=== PATIENT | female | born 1985 | race Hispanic/Latino ===

== ENCOUNTER 2021-06-11 22:37 | Emergency (ER) | payer OTHER, SELFPAY ==
--- NOTE | ~2021-06-11 | XR_ITS ---
EXAMINATION: XR chest 1V portable INDICATION: Cough and fever TECHNIQUE: Portable AP chest at 0 to 38 hours COMPARISON: None available FINDINGS: The lungs are free of acute opacities. There is no pleural effusion or pneumothorax. The ca rdiomediastinal silhouette is normal. The visualized bones and soft tissues are unremarkable. IMPRESSION: 1. No acute cardiopulmonary abnormality. Reviewed, dictated and finalized at location A. ITECTURE FACULTY MEMBER
[2021-06-11 22:39] VITALS: BP 112/61; PULSE 96; RESP 18; TEMP 37.2; O2SAT 100
[2021-06-12 02:27] VITALS: BP 120/70; PULSE 93; RESP 18; TEMP 37; O2SAT 100
--- NOTE | 2021-06-12 02:41 | ED.FEVER ---
HPI - Fever General Chief Complaint: Fever Stated Complaint: feeling very sick . being treated for strep Time Seen by Provider: 06/12/21 01:55 Source: patient and RN notes reviewed Mode of arrival: ambulatory Limitations: no limitations History of Present Illness HPI Narrative: This is a 36 year old Female who presents for evaluation of fever. She states she started feeling ill on Tuesday. She states she is runny fever up to 104 F at home for past 4 days. She also reports sore throat, cough, congestion, nausea and weakness. She states she had rapid covid test on Tuesday that was negative. She was evaluated at Urgent Care . She reports negative strep and influenza but she was started on Amoxicillin yesterday. She has come to ER because she still does not feel well even though she is taking antibiotics. She reports nausea and emesis of small amount of phlegm. She denies diarrhea. She has pain all over. She denies travel out of country. She has never been vaccinated for COVID Related Data Home Medications Medication Instructions Recorded Confirmed Bifidobacterium infantis 10.5 mg mg PO 07/11/20 (10 million cell) chewable tablet amoxicillin 875 mg PO Q12H 06/12/21 Allergies Allergy/AdvReac Type Severity Reaction Status Date / Time No Known Allergies Allergy Verified 06/12/21 02:30 Review of Systems Review of Systems: All systems reviewed & are unremarkable except as noted in HPI and below PMFSH Past Medical History Medical History Obesity PCOS (polycystic ovarian syndrome) Surgical History Surgical History Hx of breast augmentation Family History Family History (Updated 07/11/20 @ 16:16 by Melanie Sinha MD) Mother Hypertension Diabetes mellitus Sibling Obesity Social History Social History (Updated 07/11/20 @ 15:54 by Nita Blanca) Social History: Single Smoking status: Never smoker Second hand tobacco smoke exposure: No Alcohol intake: current Drinks per week: 1 Substance use: never Substance use type: does not use Gender identity (if verbalized by the patient): Female Sexual Orientation (if Verbalized by the Patient): Straight or Heterosexual Exam Const: General: no acute distress and alert Orientation/consciousness: patient oriented x3 HENMT: Head: normocephalic and atraumatic Ears: TM's normal bilaterally Face and sinus: normal facial exam, sinuses nontender and face symmetric Mouth: Yes Normal oral and palatal mucosa present, Yes lip normal, Yes oropharynx normal and Yes moist mucous membranes Throat: posterior oropharynx normal, tonsils normal and uvula midline Eyes: EOM: EOMs intact bilaterally Resp: Effort & Inspection: normal respiratory effort and no retractions Auscultation: clear to auscultation bilaterally Cardio: Rate: regular rate Rhythm: regular rhythm Heart sounds: no murmurs GI: GI Palp: Yes Soft to palpation, Yes Tenderness to palpation present (GI) (diffuse), No Guarding due to palpation present (GI) and No Rigid due to palpation Auscultation: normal bowel sounds Skin: General skin exam: normal color Rashes: no rashes Neuro: General: patient oriented x3, moves all extremities and CN's II-XI intact bilaterally Psych: Mental Status: mental status grossly normal Affect: normal affect Course Reevaluation(s) Reevaluation #1: PAtient states she feels better. Her only complaints is sore throat. She will continued the amoxicillin. She is likely dealing with viral syndrome. Date: 06/12/21 Time: 06:41 Vital Signs Vital signs: Vital Signs Temperature 99.0 F 06/11/21 22:39 Pulse Rate 96 06/11/21 22:39 Respiratory Rate 18 06/11/21 22:39 Blood Pressure 112/61 06/11/21 22:39 Pulse Oximetry 100 06/11/21 22:39 Temperature 98.6 F 06/12/21 02:27 Pulse Rate 94 06/12/21 07:15 Respiratory Rat
[2021-06-12] MEDS: ONDANSETRON INJ 4 MG/2 ML VIAL IV PUSH (03:01)
[2021-06-12] MEDS: KETOROLAC 15 MG/ML VIAL (*BKC) IV PUSH (03:02)
[2021-06-12] MEDS: SODIUM CHLORIDE 0.9% IV 1,000 ML 999 ML IV CONT (03:02)
[2021-06-12 03:07] VITALS: BP 104/61; PULSE 96; RESP 12; O2SAT 100
[2021-06-12 03:12] LABS: Alanine Aminotransferase 15 U/L (4-35); Albumin Level 4.8 g/dL (3.5-5.1); Alkaline Phosphatase 59 U/L (38-126); Anion Gap 11 mmol/L (8-16); Aspartate Amino Transferase 35 U/L (14-36); Bilirubin,Total 0.3 mg/dL (0.2-1.3); Blood Urea Nitrogen 9 mg/dL (7-17); Calcium 9.1 mg/dL (8.4-10.2); Carbon Dioxide 26 mmol/L (22-30); Chloride 93 mmol/L (98-107); Estimated Glomerular Filt Rate > 60; Glucose 112 mg/dL (65-110); Lipase 105 U/L (23-300); Potassium 3.8 mmol/L (3.4-5.0); Sodium 130 mmol/L (137-145)
[2021-06-12 03:13] LABS: Lactic Acid Reflex 0.8 mmol/L (0.7-2.1)
[2021-06-12 03:17] LABS: Basophils Percent Auto 0.2 % (0.2-1.2); Hematocrit 37.7 % (37.0-47.0); Hemoglobin 12.9 g/dL (12.0-15.0); Immature Granulocyte Absolute 0.02 K/mm3 (0.00-0.031); Immature Granulocyte Percent A 0.3 % (0-0.5); Lymphocytes Absolute Auto 1.05 K/mm3 (0.9-3.2); Lymphocytes Percent Auto 18.1 % (18.3-44.2); Mean Corpuscular HGB Conc 34.2 g/dl (32-36); Mean Corpuscular Hemoglobin 32.3 pg (26-34); Mean Corpuscular Volume 94.5 fl (80-100); Mean Platelet Volume 10.5 fl (7.4-10.4); Monocytes Absolute Auto 0.4 K/mm3 (0.1-0.6); Monocytes Percent Auto 7.2 % (2.6-8.5); Neutrophils Absolute Auto 4.3 K/mm3 (1.3-6.7); Neutrophils Percent Auto 74.2 % (45.5-73.1); Platelet Count Result 190 k/mm3 (150-375); Red Blood Count 3.99 M/mm3 (4.2-5.4); White Blood Count 5.8 K/mm3 (4.5-10.0)
[2021-06-12 03:34] LABS: Add Urine Microscopic? YES; Appearance Urine Cloudy (Clear); Bacteria Urine Trace /hpf; Bilirubin Urine Negative (Negative); Blood Urine 1+ (Negative); Color Urine Yellow (Yellow); Glucose Urine UA Negative (Negative); Ketones Urine Negative (Negative); Leukocyte Esterase Ur Trace LEU/UL (Negative); Mucus Urine Few /lpf; Nitrate Urine Negative (Negative); Protein Urine Negative (Negative); RBC Urine 21-50 /hpf (0-2); Specific Grav Ur 1.025 (1.001-1.035); Squamous Epithelial Cell Urine Many /hpf (Few); Urobilinogen Urine Negative mg/dL (<2.0)
[2021-06-12 04:37] VITALS: BP 101/61; PULSE 90; RESP 15; O2SAT 98
[2021-06-12 05:30] VITALS: BP 103/69; PULSE 86; RESP 16; O2SAT 98
[2021-06-12 06:19] LABS: Monoscreen Negative (Negative); Negative Monotest Control Negative (Negative); Positive Monotest Control Positive (Positive)
[2021-06-12 07:15] VITALS: BP 103/65; PULSE 94; RESP 15; O2SAT 100
[2021-06-12 19:26] LABS: SARS-CoV-2 RNA PCR Positive
== END 2021-06-12 07:16 | disposition home or self-care (01) ==
PROVIDERS: Emergency Provider General Practice
DX: U07.1 COVID-19 (principal); E28.2 Polycystic ovarian syndrome; E66.9 Obesity, unspecified
CPT/HCPCS: 36415; 71045; 80053; 81001; 81025; 83605; 83690; 85025; 86308; 87081; 87086; 87804; 87880; 96361; 96374; 96375; 99284; C9803; J1885; J2405; J7030; U0003; U0005

== ENCOUNTER 2022-05-03 18:47 | Emergency (ER) | payer SELFPAY ==
--- NOTE | 2022-05-03 18:50 | ED.URI ---
HPI - URI/Sore Throat General Chief Complaint: Upper Respiratory Infection Stated Complaint: cough, chest pain, shortness of breath Time Seen by Provider: 05/03/22 19:00 Source: patient and RN notes reviewed Mode of arrival: ambulatory Limitations: no limitations History of Present Illness HPI Narrative: 37-year-old female presents with concern for 12 day history of cough, nasal congestion, rhinorrhea. Reports symptoms started after she came home from her honeymoon. She reports she went to an urgent care and was tested for COVID and flu, tested negative she is given a Z-Sher. She reports she took the Z-Sher with mild improvement, however her symptoms have worsened and she feels general malaise, fatigue, low-grade fever. MD elicited complaint: cough and sore throat Related Data Allergies Allergy/AdvReac Type Severity Reaction Status Date / Time No Known Allergies Allergy Verified 05/03/22 18:55 Review of Systems Review of Systems: CONSTITUTIONAL: Reports malaise, fatigue, low-grade fever. EYES: Denies visual changes, redness, or discharge. ENT: Reports rhinorrhea, congestion, postnasal drainage. CARDIOVASCULAR: Denies chest pain, palpitations, or edema. RESPIRATORY: Reports persistent cough, chest congestion, occasional shortness of breath GASTROINTESTINAL: Denies abdominal pain, nausea, vomiting, diarrhea SKIN: Denies rash or itching. MUSCULOSKELETAL: Reports myalgia. NEUROLOGIC: Denies headache. All systems reviewed & are unremarkable except as noted in HPI and below PMFSH Comments At time of signature, agree with nursing past medical, surgical, social and family history. There is no relevant family history pertinent to the presenting complaint Exam Narrative: GENERAL: Nontoxic-appearing and in no acute distress. HEAD: Normocephalic EYES: PERRLA, conjunctivae clear ENT: Nares clear, turbinates edematous and erythematous, postnasal drainage. Mucous membranes moist. TM pearly cifuentes with dull light reflex bilaterally; no tragal tenderness. Oropharynx mildly erythematous without lesions. Tonsils not enlarged and without exudate, no drooling, no hoarseness, no trismus, uvula midline. NECK: Supple. No lymphadenopathy CHEST: Scattered expiratory wheeze, otherwise Clear to auscultation, breath sounds equal. No rhonchi, rales, or stridor. No respiratory distress, speaks in full sentences. HEART: Regular rate and rhythm. No murmur heard. SKIN: Warm, dry, no rash. NEURO: Alert and oriented x3. PSYCH: Normal mood and affect Course Course Emergency Course: Patient is aware of diagnosis, understands and agrees to treatment plan. Anticipatory guidance given. Patient agrees to follow-up as directed and is aware of reasons to seek care at the emergency department. Portions of this record may have been created with voice recognition software Level of Care: Express Care Visit Vital Signs Vital signs: Reviewed. MDM - URI/Sore Throat MDM Narrative Medical decision making narrative: Differential diagnosis considered: [place] virus, strep pharyngitis, allergic rhinitis, upper respiratory tract infection, sinusitis, rhinosinusitis, nasopharyngitis. viral pharyngitis, otitis media, otitis externa, pneumonia, bronchitis, viral cough syndrome, viral syndrome, and influenza. Exam findings show no acute concerns or changes; patient is non-toxic appearing and is in no distress. Patient is appropriate for outpatient treatment and follow-up. Lab Data Attestation: I reviewed the patient's lab results. Critical Care Time Critical Care Time Critical Care Time: No Discharge Plan Discharge Clinical Impression: Sinobronchitis Patient Disposition: Home, Self-Care Condition: Stable Instructions: Antibiotic Form, Acute Bronchitis (ED) Additional Instructions: Take medications as prescribed Cough syrup may cause drowsiness; avoid driving or take it at night time. Use inhaler as needed for cough, wheezing, shortness of breath or chest
[2022-05-03 19:00] VITALS: BP 96/69; PULSE 93; RESP 16; TEMP 37.3; O2SAT 100
== END 2022-05-03 19:22 | disposition home or self-care (01) ==
PROVIDERS: Emergency Provider Nurse Practitioner
DX: J40 Bronchitis, not specified as acute or chronic (principal)
CPT/HCPCS: 99213; G0463

== ENCOUNTER 2022-09-20 17:14 | Emergency (ER) | payer OTHER, SELFPAY ==
[2022-09-20 17:27] VITALS: BP 104/57; PULSE 55; RESP 16; TEMP 36.6; O2SAT 100
--- NOTE | 2022-09-20 17:54 | ED.URI ---
HPI - URI/Sore Throat General Chief Complaint: Upper Respiratory Infection Stated Complaint: SORE THROAT Time Seen by Provider: 09/20/22 17:54 Source: patient Mode of arrival: ambulatory Limitations: no limitations History of Present Illness HPI Narrative: 37-year-old female presents with complaint of body aches, fatigue, low-grade fever, sore throat, headache, nasal congestion and cough for 2 days. Reports that several people in her office are sick. Also reports upset stomach, mild nausea. Has not vomited. No diarrhea. No chest pain or shortness of breath. Is not taking any [id number] medications to treat her symptoms. All systems reviewed and negative except as noted above. Related Data Allergies Allergy/AdvReac Type Severity Reaction Status Date / Time No Known Allergies Allergy Verified 09/20/22 17:27 Review of Systems Review of Systems: CONSTITUTIONAL: Reports fatigue, fever, chills, or sweats. EYES: Denies visual changes, redness, or discharge. ENT: Reports rhinorrhea, congestion, sore throat. Denies otalgia. CARDIOVASCULAR: Denies chest pain, palpitations, or edema. RESPIRATORY: Reports cough. Denies dyspnea. GASTROINTESTINAL: Denies abdominal pain, nausea, vomiting, or diarrhea. GENITOURINARY: Denies dysuria or hematuria. SKIN: Denies rash or itching. MUSCULOSKELETAL: Denies back pain, joint pain, or myalgia. NEUROLOGIC: Denies headache, numbness, or weakness. PSYCHIATRIC: Denies anxiety or depression. All other systems reviewed are negative, except as documented in HPI. [facility] Past Medical History Medical History Obesity PCOS (polycystic ovarian syndrome) Surgical History Surgical History Hx of breast augmentation Family History Family History (Updated 07/11/20 @ 16:16 by Melanie Sinha MD) Mother Hypertension Diabetes mellitus Sibling Obesity Social History Social History (Updated 07/11/20 @ 15:54 by Nita Blanca) Social History: Single Smoking status: Never smoker Second hand tobacco smoke exposure: No Alcohol intake: current Drinks per week: 1 Substance use: never Substance use type: does not use Living arrangements: alone Occupation/Education: occupation Gender identity (if verbalized by the patient): Female Sexual Orientation (if Verbalized by the Patient): Straight or Heterosexual Comments At time of signature, agree with nursing past medical, surgical, social and family history. There is no relevant family history pertinent to the presenting complaint. Exam Narrative: GENERAL: This is a well-nourished, well-developed patient, in no apparent distress. HEAD: normocephalic, atraumatic. EYES: PERRL. Sclera clear/white. Vision is grossly intact. EARS: External ears normal, auditory canals clear and without drainage, TMs normal without perforation. Hearing grossly intact. NOSE: External nose normal with no obvious nasal discharge, nares without redness, no rhinorrhea. THROAT: Mucous membranes moist, posterior pharynx clear. NECK: Neck supple, non-tender without lymphadenopathy, masses or thyromegaly. CARDIOVASCULAR: Regular rate and rhythm without murmurs, gallops, or rubs. RESPIRATORY: Clear to auscultation. Breath sounds equal bilaterally. No wheezes, rales, or rhonchi. SKIN: warm, Dry, intact with no suspicious lesions or rash, good texture and turgor. NEURO: awake, alert, and oriented to person, place and time. There were no obvious focal neurologic abnormalities. EXTREMITIES: No joint tenderness, effusion, or edema noted. Course Course Level of Care: Express Care Visit Vital Signs Vital signs: Vital Signs Temperature 36.6 C 09/20/22 17:27 Pulse Rate 55 L 09/20/22 17:27 Respiratory Rate 16 09/20/22 17:27 Blood Pressure 104/57 L 09/20/22 17:27 Pulse Oximetry 100 09/20/22 17:27 Oxygen Delivery Room Air
== END 2022-09-20 18:20 | disposition home or self-care (01) ==
PROVIDERS: Emergency Provider Nurse Practitioner Family
DX: J06.9 Acute upper respiratory infection, unspecified (principal); B97.89 Other viral agents as the cause of diseases classified elsewhere
CPT/HCPCS: 87081; 87880; 99213; G0463

== ENCOUNTER 2023-01-11 21:18 | Emergency (ER) | payer OTHER, SELFPAY ==
--- NOTE | ~2023-01-11 | XR_ITS ---
EXAMINATION: XR chest 2V DATE: 01/11/2023 22:40 INDICATION: Chest pain. TECHNIQUE: Frontal and lateral views of the chest were obtained. COMPARISON: Chest single view 06/12/2021 FINDINGS: The chest demonstrates clear lungs without pneumonia, pleural effusion, or pneumothorax. Th e heart size is normal. Breast implants are noted. IMPRESSION: 1. No acute cardiopulmonary disease. Reviewed, dictated and finalized at location E.
[2023-01-11 21:32] VITALS: BP 111/55; PULSE 77; RESP 16; TEMP 37.1; O2SAT 100
--- NOTE | 2023-01-11 21:36 | ECG_ITS ---
Measurements Intervals [place] Rate: 83 P: 55 [place]: 169 QRS: 64 QRSD: 94 T: 67 QT: 365 QTc: 429 Interpretive Statements SINUS RHYTHM NORMAL ECG NO PREVIOUS ECG AVAILABLE FOR COMPARISON Electronically Signed On 01-12-2023 7:02:23 CDT by Thomas Christina D.O.
[2023-01-11 21:55] LABS: Basophils Percent Auto 0.2 % (0.2-1.2); Eosinophils Absolute Auto 0.1 K/mm3 (0-0.3); Eosinophils Percent Auto 0.9 % (0-4.4); Hematocrit 35.4 % (37.0-47.0); Hemoglobin 11.5 g/dL (12.0-15.0); Immature Granulocyte Absolute 0.03 K/mm3 (0.00-0.031); Immature Granulocyte Percent A 0.3 % (0-0.5); Lymphocytes Absolute Auto 4.28 K/mm3 (0.9-3.2); Mean Corpuscular HGB Conc 32.5 g/dl (32-36); Mean Corpuscular Hemoglobin 31.9 pg (26-34); Mean Corpuscular Volume 98.3 fl (80-100); Mean Platelet Volume 10.4 fl (7.4-10.4); Monocytes Absolute Auto 0.6 K/mm3 (0.1-0.6); Neutrophils Absolute Auto 4.5 K/mm3 (1.3-6.7); Neutrophils Percent Auto 47.6 % (45.5-73.1); Platelet Count Result 253 k/mm3 (150-375); Red Cell Distribution Width 13.2 % (11.5-14.5); White Blood Count 9.5 K/mm3 (4.5-10.0)
[2023-01-11 22:06] LABS: Alanine Aminotransferase 14 U/L (6-35); Albumin Level 4.1 g/dL (3.5-5.1); Alkaline Phosphatase 48 U/L (38-126); Anion Gap 3 mmol/L (8-16); Aspartate Amino Transferase 27 U/L (14-36); Bilirubin,Total 0.3 mg/dL (0.2-1.3); Blood Urea Nitrogen 13 mg/dL (7-17); Calcium 8.8 mg/dL (8.4-10.2); Carbon Dioxide 31 mmol/L (22-30); Chloride 101 mmol/L (98-107); Estimated CRCL calculation 81 ml/min; Estimated Glomerular Filt Rate > 60; Glucose 91 mg/dL (65-110); Lipase 97 U/L (23-300); Potassium 3.5 mmol/L (3.4-5.0); Sodium 135 mmol/L (137-145)
[2023-01-11 22:17] LABS: INR 0.9; Partial Thromboplastin Time 24.2 SECONDS (22.3-36.8); Prothrombin Time 12.7 Seconds (11.1-14.7); Troponin I < 0.012 ng/mL (0.000-0.034)
[2023-01-12 00:27] VITALS: BP 117/56; PULSE 77; RESP 14; TEMP 36.6; O2SAT 100
[2023-01-12 01:32] LABS: Appearance Urine Clear (Clear); Bacteria Urine Rare /hpf; Bilirubin Urine Negative (Negative); Blood Urine Negative (Negative); Color Urine Yellow (Yellow); Glucose Urine UA Negative (Negative); Ketones Urine Negative (Negative); Leukocyte Esterase Ur 1+ LEU/UL (Negative); Nitrate Urine Negative (Negative); Non Pathogenic Casts 0-2; Protein Urine Negative (Negative); Specific Grav Ur 1.021 (1.001-1.035); Squamous Epithelial Cell Urine Few /hpf (Few)
[2023-01-12 01:49] LABS: Amphetamine Screen Urine Negative (Negative); Barbiturate Screen Urine Negative (Negative); Benzodiazepines Screen Urine Negative (Negative); Cannabinoid Screen Urine Negative (Negative); Cocaine Screen Urine Negative (Negative); Methadone Screen Urine Negative (Negative); Opiate Screen Urine Negative (Negative); Phencyclidine Screen Urine Negative (Negative)
[2023-01-12 01:57] LABS: Troponin I < 0.012 ng/mL (0.000-0.034)
[2023-01-12 02:37] LABS: Add Urine Microscopic? YES
--- NOTE | 2023-01-12 02:39 | ED.GENADULT ---
HPI - General Adult General Chief complaint: Fever Stated complaint: fever Time Seen by Provider: 01/11/23 23:53 History of Present Illness HPI narrative: This is a 38-year-old female presenting to the ED with a chief complaint of flushing x2 months. She also says that is associated with chest pressure, throat pressure, and shortness of breath. She says it starts when she wakes up in the morning and continues throughout most of the day. Patient was seen a week ago in urgent care she was treated with steroids which she said helped mildly improved her symptoms. patient denies nausea vomiting or diarrhea. no hives. She has not seen her primary care physician for this. patient is physically very active and takes a multitude of vitamins and supplements. She denies using any sort of fat burner or weight loss supplements. She denies use of illicit drugs. Related Data Allergies Allergy/AdvReac Type Severity Reaction Status Date / Time No Known Allergies Allergy Verified 01/11/23 21:18 PMFSH Past Medical History Medical History Obesity PCOS (polycystic ovarian syndrome) Surgical History Surgical History Hx of breast augmentation Family History Family History Mother Hypertension Diabetes mellitus Sibling Obesity Social History Social History Social History: Single Smoking status: Never smoker Second hand tobacco smoke exposure: No Alcohol intake: current Drinks per week: 1 Substance use: never Substance use type: does not use Living arrangements: alone Occupation/Education: occupation Gender identity (if verbalized by the patient): Female Sexual Orientation (if Verbalized by the Patient): Straight or Heterosexual Exam Narrative: APPEARANCE: patient is resting comfortably. She is animated during the exam. Head: a no edematraumatic. EYES: EOMI, NOSE: Atraumatic NECK: Trachea midline RESPIRATORY: No increased rate of breathing CTAB CARDIOVASCULAR: RRR, no peripheral edema ABDOMINAL: Non-distended MUSCULOSKELETAl: No obvious deformities NEURO: Alert. Moving 4/4 extremities SKIN:: no hives, no edema PSYCHIATRIC: Normal affect Course Vital Signs Vital signs: Vital Signs Temperature 98.8 F 01/11/23 21:32 Pulse Rate 77 01/11/23 21:32 Respiratory Rate 16 01/11/23 21:32 Blood Pressure 111/55 L 01/11/23 21:32 Pulse Oximetry 100 01/11/23 21:32 Oxygen Delivery Room Air 01/11/23 21:32 Temperature 97.8 F 01/12/23 00:27 Pulse Rate 77 01/12/23 00:27 Respiratory Rate 14 01/12/23 00:27 Blood Pressure 117/56 L 01/12/23 00:27 Pulse Oximetry 100 01/12/23 00:27 Oxygen Delivery Room Air 01/11/23 21:32 Medical Decision Making MDM Narrative Medical decision making narrative: -Presentation: 30-year-old female presenting with 2 months of flushing. She is also reporting chest tightness shortness of breath and throat swelling although she seems to be resting comfortably with normal vital signs. She is speaking in full sentences and swallowing her own secretions. Screening lab work was ordered per nursing protocol. I have added on a TSH and a urine drug screen. -DDX includes but is not limited to: Allergic reaction, hyperthyroid, weight loss supplementation/vitamin side effects -Co-morbidities complicating care: history of morbid obesity, history of asthma -Social determinants of health: patient lives with her -External Chart Review: none -Hx from independent Sources: at bedside -Independent interpretation of studies: CBC normal. Metabolic panel normal. Urine is a contaminated catch but she has no urinary symptoms. Will await culture results. Urine drug screen negative. Chest x-ray normal.
== END 2023-01-12 02:56 | disposition home or self-care (01) ==
PROVIDERS: Emergency Provider Emergency Medicine; PCP Internal Medicine
DX: R23.2 Flushing (principal)
CPT/HCPCS: 36415; 71046; 80053; 80307; 81001; 81025; 83690; 84443; 84484; 85025; 85610; 85730; 87086; 87088; 93005; 99284

== ENCOUNTER 2023-06-11 19:50 | Emergency (ER) | payer OTHER, SELFPAY ==
[2023-06-11] VITALS (13 sets, daily range): BP systolic 120–128; BP diastolic 70–85; PULSE 78–99; RESP 13–24; TEMP 37.2; O2SAT 99–100
--- NOTE | ~2023-06-11 | CT_ITS ---
EXAMINATION: CT brain wo con INDICATION: Altered mental status COMPARISON: None TECHNIQUE: Standard unenhanced head CT. The dose-length product (DLP) was 681.00 mGy-cm. The mA was a djusted according to patient size. Iterative reconstruction technique was employed. FINDINGS: No intracranial hemorrhage, acute infarction, or abnormal mass lesion. The ventricles are n ormal. No abnormal mass effect or midline shift. The cifuentes-white matter differentiation is normal. The basal cisterns are patent. The orbits are normal. The paranasal sinuses, mastoids and calvarium are normal. IMPRESSION: 1. No acute intracranial abnormality. Reviewed, dictated and finalized at location F. IATRIC THORACIC PHYSICIAN
--- NOTE | ~2023-06-11 | XR_ITS ---
EXAMINATION: XR chest 2V Exam Date/Time: 06/11/2023 20:29 PRODUCT DEVELOPMENT TECHNICIAN HISTORY: chest pain, HEADACHE Comparison: 01/11/2023. RESULT: Lines, tubes, and devices: Bilateral breast implants. Lungs and pleura: Clear. Cardiomediastinal silhouette: Stable. Other: No acute osseous or upper abdominal finding. IMPRESSION: No acute cardiopulmonary process. Reviewed, dictated and finalized at location K. UCT DEVELOPMENT TECHNICIAN
--- NOTE | 2023-06-11 20:04 | ECG_ITS ---
Measurements Intervals [place] Rate: 107 P: 47 [place]: 190 QRS: 57 QRSD: 86 T: 67 QT: 278 QTc: 372 Interpretive Statements SINUS TACHYCARDIA NONSPECIFIC ST & T-WAVE ABNORMALITY Electronically Signed On 06-12-2023 10:27:23 COMMUNITY RELATIONS REPRESENTATIVE by Srini Long M.D.
[2023-06-11 22:04] LABS: Basophils Percent Auto 0.4 % (0.2-1.2); Eosinophils Absolute Auto 0.1 K/mm3 (0-0.3); Eosinophils Percent Auto 0.8 % (0-4.4); Hematocrit 37.1 % (37.0-47.0); Hemoglobin 12.5 g/dL (12.0-15.0); Immature Granulocyte Absolute 0.02 K/mm3 (0.00-0.031); Immature Granulocyte Percent A 0.3 % (0-0.5); Lymphocytes Absolute Auto 2.23 K/mm3 (0.9-3.2); Lymphocytes Percent Auto 30.2 % (18.3-44.2); Mean Corpuscular HGB Conc 33.7 g/dl (32-36); Mean Corpuscular Hemoglobin 32.7 pg (26-34); Mean Corpuscular Volume 97.1 fl (80-100); Mean Platelet Volume 10.5 fl (7.4-10.4); Monocytes Absolute Auto 0.5 K/mm3 (0.1-0.6); Monocytes Percent Auto 6.9 % (2.6-8.5); Neutrophils Absolute Auto 4.5 K/mm3 (1.3-6.7); Neutrophils Percent Auto 61.4 % (45.5-73.1); Platelet Count Result 231 k/mm3 (150-375); Red Blood Count 3.82 M/mm3 (4.2-5.4); Red Cell Distribution Width 12.6 % (11.5-14.5); White Blood Count 7.4 K/mm3 (4.5-10.0)
[2023-06-11 22:15] LABS: Alanine Aminotransferase 9 U/L (6-35); Albumin Level 4.6 g/dL (3.5-5.1); Alkaline Phosphatase 64 U/L (38-126); Anion Gap 6 mmol/L (8-16); Aspartate Amino Transferase 36 U/L (14-36); Bilirubin,Total 0.4 mg/dL (0.2-1.3); Blood Urea Nitrogen 12 mg/dL (7-17); Calcium 9.2 mg/dL (8.4-10.2); Carbon Dioxide 25 mmol/L (22-30); Chloride 105 mmol/L (98-107); Estimated CRCL calculation 119 ml/min; Estimated Glomerular Filt Rate > 60; Glucose 99 mg/dL (65-110); Lipase 96 U/L (23-300); Potassium 3.8 mmol/L (3.4-5.0); Sodium 136 mmol/L (137-145)
[2023-06-11 22:17] LABS: Prothrombin Time 13.5 Seconds (11.1-14.7)
[2023-06-11 22:18] LABS: Partial Thromboplastin Time 26.8 SECONDS (22.3-36.8)
[2023-06-11 22:26] LABS: Troponin I < 0.012 ng/mL (0.000-0.034)
[2023-06-12] VITALS (10 sets, daily range): BP systolic 114–140; BP diastolic 71–76; PULSE 68–97; RESP 12–22; O2SAT 98–100
[2023-06-12] MEDS: ACETAMINOPHEN 500 MG TABLET 1000 MG PO (00:41)
[2023-06-12] MEDS: diphenhydrAMINE HCl INJ 50 MG/ML VIAL 25 MG IV PUSH (00:41)
[2023-06-12] MEDS: PROCHLORPERAZINE EDISYLATE 10 MG/2 ML VIAL IV PUSH (00:41)
--- NOTE | 2023-06-12 01:12 | ED.GENADULT ---
HPI - General Adult General Chief complaint: Arrhythmia/Palpitations Stated complaint: heart racing, tingling all over, VELA/CP Time Seen by Provider: 06/11/23 22:50 History of Present Illness HPI narrative: This is a 38-year-old female presenting to the ED with chief complaint of paralysis. Patient says that while she was driving her car to a formal [place] she started to develop shortness of breath tingling in her hands feet and mouth and complete paralysis. She felt like she was going to . She called an ambulance was brought to the hospital. At this time she is symptom free. Patient has been being worked up by her primary care physician for a multitude of complaints including headaches, GI discomfort, twitching of her mouth. Patient sees therapist. Patient adamantly denies any history of anxiety or panic disorder. Patient is also complaining of a left-sided stabbing headache which she has had for 4 months. This is her typical headache, she has an outpatient MRI scheduled to her primary care visit physician although she is very upset that is not until August 01. Patient wants a CT of her head. Related Data Allergies Allergy/AdvReac Type Severity Reaction Status Date / Time No Known Allergies Allergy Verified 01/11/23 21:18 [facility] Past Medical History Medical History Obesity PCOS (polycystic ovarian syndrome) Surgical History Surgical History Hx of breast augmentation Family History Family History Mother Hypertension Diabetes mellitus Sibling Obesity Social History Social History Social History: Single Smoking status: Never smoker Second hand tobacco smoke exposure: No Alcohol intake: current Drinks per week: 1 Substance use: never Substance use type: does not use Living arrangements: alone Occupation/Education: occupation Gender identity (if verbalized by the patient): Female Sexual Orientation (if Verbalized by the Patient): Straight or Heterosexual Exam Narrative: APPEARANCE: Patient is intermittently crying during the interview, patient demonstrates Behavioral splitting. Head: atraumatic. EYES: EOMI, NOSE: Atraumatic NECK: Trachea midline RESPIRATORY: No increased rate of breathing, clear to auscultation CARDIOVASCULAR: RRR, no peripheral edema ABDOMINAL: Non-distended soft nontender MUSCULOSKELETAl: No obvious deformities NEURO: Alert. Cranial nerves 2-12 grossly intact. Sensation light touch, motor function cerebellar function intact for 4 extremities. Gait exam was normal. SKIN:: Warm, dry. Normal color PSYCHIATRIC: Normal affect Course Vital Signs Vital signs: Vital Signs Temperature 99.0 F 06/11/23 19:53 Pulse Rate 99 06/11/23 19:53 Respiratory Rate 18 06/11/23 19:53 Blood Pressure 125/70 06/11/23 19:53 Pulse Oximetry 99 06/11/23 19:53 Oxygen Delivery Room Air 06/11/23 19:53 Temperature 99.0 F 06/11/23 19:53 Pulse Rate 78 06/11/23 23:30 Respiratory Rate 15 06/11/23 23:30 Blood Pressure 120/76 06/11/23 22:31 Pulse Oximetry 100 06/11/23 23:00 Oxygen Delivery Room Air 06/11/23 19:53 Medical Decision Making [facility] Narrative Medical decision making narrative: -Course: 38-year-old female presenting with episode of paralysis. This is with consistent with panic disorder. Patient is very distraught when I mentioned anxiety anxiety and panic disorder. Patient is skeptical and confrontational throughout the interview. Laboratory studies, chest x-ray EKG and CT head were all normal. Patient be discharged with primary care follow-up Patient is given a migraine cocktail for her chronic headache. -DDX includes but is not limited to: Somatic symptom disorder, Anxiety, panic disorder, cluster B perso
--- NOTE | 2023-06-12 01:14 | PC.NURSE ---
EDP Dr. Green verbally cancelled 3 hour EKG for pt. This RN used closed loop communication to confirm cancellation of 3hour ekg. However, 3 hour troponin blood test was continued.
[2023-06-12 01:20] LABS: Troponin I < 0.012 ng/mL (0.000-0.034)
== END 2023-06-12 01:37 | disposition home or self-care (01) ==
PROVIDERS: Student in an Organized Health Care Education/Training Program; Emergency Provider Emergency Medicine; PCP Family Medicine
DX: R51.9 Headache, unspecified (principal); F41.0 Panic disorder [episodic paroxysmal anxiety]
CPT/HCPCS: 36415; 70450; 71046; 80053; 83690; 84484; 85025; 85610; 85730; 93005; 96374; 96375; 99284; A9270; J0780; J1200

== ENCOUNTER 2023-12-14 20:04 | Emergency (ER) | payer OTHER, SELFPAY ==
[2023-12-14] VITALS (24 sets, daily range): BP systolic 102–120; BP diastolic 54–81; PULSE 79–101; RESP 12–20; TEMP 36.5; O2SAT 95–100
--- NOTE | ~2023-12-14 | CT_ITS ---
CTA brain carotid Ordering provider: Alayna Sarmiento MD History: . Stroke . Comparison: None. Technique: CT angiogram head and neck was performed following timed intravenous injection of contrast . Thin slice axial images and reformatted coronal images were obtained. Three dimensional reformatted images of the brain were also obtained using a [employer] workstation. Radiation reduction technique ut ilized. FINDINGS: HEAD: --ANTERIOR AND MIDDLE CEREBRAL ARTERIES AND BRANCHES: Normal caliber and contour. --INTERNAL CAROTID ARTERIES: no significant stenosis. No occlusion. --BASILAR ARTERY AND BRANCHES: Normal caliber and contour. No atheromatous disease. --POSTERIOR CEREBRAL ARTERIES: Normal caliber and contour --POSTERIOR COMMUNICATING ARTERIES: Not visualized which is probably related to congenital absence or small size. --ANEURYSM: None visualized. --BRAIN: Please refer to report of CT head performed the same day. --BONES AND SUPERFICIAL SOFT TISSUES: Please refer to report of CT head performed the same day. --PARANASAL SINUSES AND MASTOIDS: Please refer to report of CT head done the same day. NECK: --RIGHT CERVICAL CAROTID SYSTEM: No significant stenosis Percent stenosis per NASCET criteria is 0% No carotid dissection. Otherwise, no significant atheromatous disease or stenosis of the cervical car otid system. --LEFT CERVICAL CAROTID SYSTEM: No significant stenosis Percent stenosis per NASCET criteria is 0% N o carotid dissection. Otherwise, no significant atheromatous disease or stenosis of the cervical jenkins tid system. --VERTEBRAL arteries::Normal caliber and contour.contour. --VISUALIZED AORTIC ARCH AND BRANCHING VMild atheromatous disease but no significant stenosis.tenosis . --SOFT TNormal. Normal. --CERVICALAge appropriate degenerative changes.. 1. IMPRENormal CTA head and neck.Percent stenosis per NASCET criteria is 0%. Reviewed, dictated and finalized at location A.
--- NOTE | ~2023-12-14 | XR_ITS ---
XR chest 1V portable Ordering provider: Hilary Mckenna MD History: 38 years Female with . suspected cva CHEST TIGHTNESS WEAKNES LEFT SIDE OF BODY . Comparison: June 11, 2023 FINDINGS: MEDIASTINUM: The cardiac silhouette is not enlarged. LUNGS: No infiltrates, effusions or pneumothorax. OTHER: No free air under the diaphragm. Degenerative changes of the spine. IMPRESSION: No acute cardiopulmonary pathology. Reviewed, dictated and finalized at location A.
--- NOTE | ~2023-12-14 | CT_ITS ---
CT brain wo con Ordering provider: Alayna Sarmiento MD History: 38 years Female with . Stroke . Comparison: June 12, 2023 Technique: CT of the head without contrast. Radiation reduction technique utilized. FINDINGS: BRAIN PARENCHYMA AND CSF SPACES: No midline shift, mass effect or hemorrhage. The brain parenchyma a nd CSF spaces are otherwise normal. VISUALIZED PARANASAL SINUSES: Well aerated. MASTOIDS: Well aerated. BONES: The bones appear intact. SOFT TISSUES: Visualized nasopharynx is normal. Superficial soft tissues are normal. IMPRESSION: No acute intracranial findings. Reviewed, dictated and finalized at location A.
--- NOTE | 2023-12-14 20:06 | ECG_ITS ---
Test Date: 2023-12-14 20:10:22 Measurements Intervals [place] Rate: 99 P: 51 [place]: 165 QRS: 45 QRSD: 86 T: 56 QT: 346 QTc: 444 Interpretive Statements SINUS RHYTHM NONSPECIFIC T-WAVE ABNORMALITY No previous ECG available for comparison Electronically Signed On 12-15-2023 12:40:24 CDT by Isis Talbert M.D.
[2023-12-14 20:31] LABS: Glucose Point of Care 94 mg/dl (65-105)
[2023-12-14 20:42] LABS: Basophils Percent Auto 0.2 % (0.2-1.2); Eosinophils Absolute Auto 0.2 K/mm3 (0-0.3); Eosinophils Percent Auto 3.8 % (0-4.4); Hematocrit 36.4 % (37.0-47.0); Hemoglobin 12.2 g/dL (12.0-15.0); Immature Granulocyte Absolute 0.01 K/mm3 (0.00-0.031); Immature Granulocyte Percent A 0.2 % (0-0.5); Lymphocytes Absolute Auto 2.76 K/mm3 (0.9-3.2); Lymphocytes Percent Auto 47.1 % (18.3-44.2); Mean Corpuscular HGB Conc 33.5 g/dl (32-36); Mean Corpuscular Hemoglobin 31.4 pg (26-34); Mean Corpuscular Volume 93.8 fl (80-100); Mean Platelet Volume 9.9 fl (7.4-10.4); Monocytes Absolute Auto 0.4 K/mm3 (0.1-0.6); Monocytes Percent Auto 6.5 % (2.6-8.5); Neutrophils Absolute Auto 2.5 K/mm3 (1.3-6.7); Neutrophils Percent Auto 42.2 % (45.5-73.1); Platelet Count Result 265 k/mm3 (150-375); Red Blood Count 3.88 M/mm3 (4.2-5.4); Red Cell Distribution Width 13.5 % (11.5-14.5); White Blood Count 5.9 K/mm3 (4.5-10.0)
[2023-12-14 20:42] LABS: Estimated Glomerular Filt Rate > 60
[2023-12-14 20:53] LABS: Alanine Aminotransferase 9 U/L (6-35); Albumin Level 4.7 g/dL (3.5-5.1); Alkaline Phosphatase 64 U/L (38-126); Anion Gap 9 mmol/L (4-12); Aspartate Amino Transferase 26 U/L (14-36); Bilirubin,Total 0.4 mg/dL (0.2-1.3); Blood Urea Nitrogen 12 mg/dL (7-17); Calcium 9.7 mg/dL (8.4-10.2); Carbon Dioxide 26 mmol/L (22-30); Chloride 102 mmol/L (98-107); Estimated Glomerular Filt Rate > 60; Glucose 96 mg/dL (65-110); INR 0.9; Potassium 3.3 mmol/L (3.4-5.0); Prothrombin Time 12.6 Seconds (11.1-14.7); Sodium 137 mmol/L (137-145)
[2023-12-14 20:54] LABS: Partial Thromboplastin Time 26.2 Seconds (22.3-36.8)
[2023-12-14 21:04] LABS: Troponin I < 0.012 ng/mL (0.000-0.034)
[2023-12-14 21:07] LABS: Magnesium 1.9 mg/dL (1.6-2.3)
[2023-12-14 22:05] LABS: Appearance Urine Cloudy (Clear); Bacteria Urine 1+ /hpf; Bilirubin Urine Negative (Negative); Blood Urine Trace (Negative); Color Urine Yellow (Yellow); Glucose Urine UA Negative (Negative); Ketones Urine Negative (Negative); Leukocyte Esterase Ur Trace LEU/UL (Negative); Need Manual Microscopic Reviewed; Nitrate Urine Negative (Negative); Non Pathogenic Casts 0-2; Protein Urine Negative (Negative); Squamous Epithelial Cell Urine Moderate /hpf (Few); Urobilinogen Urine 0.2 mg/dL (<2.0); pH Urine 5.5 (5.0-9.0)
[2023-12-14 22:12] LABS: Add Urine Microscopic? YES
--- NOTE | 2023-12-14 22:24 | ED.NEUROSD ---
HPI - Neuro Symptoms/Deficit General Chief Complaint: Suspected CVA Stated Complaint: heart racing, feels bad Time Seen by Provider: 12/14/23 20:35 History of Present Illness HPI Narrative: Patient is a 38-year-old female who presents to the emergency department this evening complaining of left-sided numbness and/or tingling. Patient admits that this started shortly prior to arrival. Patient states that she felt as though her heart was racing and then had a sudden onset of left-sided numbness and tingling and weakness. These episodes have now resolved. She admits that she has been having intermittent palpitations and states that back in June she came in for similar symptoms and the doctor at that time told her that she has anxiety and needs to go because there is nothing wrong with her. Patient states that she has never had any anxiety and does not have any history of it and did not feel anxious at that time and does not feel anxious today. Patient states that when she gets these episodes she feels as though her heart is pounding so fast that is about to jump out of her chest. Patient states these episodes are intermittent and although they happened since her last visit to the ED, they have not been as severe as they were on June and today. Patient did not follow up with anyone regarding these episodes. She is currently denying any chest pain or shortness of breath, any focal weakness. No additional symptoms or concerns at this time. Related Data Allergies Allergy/AdvReac Type Severity Reaction Status Date / Time No Known Allergies Allergy Verified 01/11/23 21:18 Review of Systems Review of Systems: All systems are reviewed and are negative unless stated otherwise in the HPI. [facility] Past Medical History Medical History Obesity PCOS (polycystic ovarian syndrome) Surgical History Surgical History Hx of breast augmentation Family History Family History Mother Hypertension Diabetes mellitus Sibling Obesity Social History Social History Social History: Single Smoking status: Never smoker Second hand tobacco smoke exposure: No Alcohol intake: current Drinks per week: 1 Substance use: never Substance use type: does not use Living arrangements: alone Occupation/Education: occupation Gender identity (if verbalized by the patient): Female Sexual Orientation (if Verbalized by the Patient): Straight or Heterosexual Exam Narrative: General: Alert, awake, afebrile, in no acute distress. HEENT: PERRL, no rhinorrhea, no post nasal drip, oropharynx clear. Cardiovascular: Regular rate and rhythm, no murmurs, rubs or gallops, no peripheral edema. Respiratory: Clear to auscultation bilaterally, no tachypnea, no wheezing, no rhonchi, no rubs, no respiratory distress. Abdomen: Soft, nontender, nondistended, no rebound, no guarding, no peritoneal signs. Musculoskeletal: No joint swelling or deformity, normal muscle tone. Skin: No rashes or petechia, no signs of infection. Psychiatric: Alert and oriented, normal behavior and judgment for situation. Neurological: Alert and oriented to person, place, and time. Follows all commands. No focal deficits, 5/5 motor strength in the bilateral upper and lower extremity, sensation intact in the bilateral lower and upper extremity, cranial nerves 2-12 grossly intact, speech is clear and fluent. NIH 0. Course Vital Signs Vital signs: Vital Signs Temperature 97.7 F 12/14/23 20:47 Pulse Rate 99 12/14/23 20:47 Respiratory Rate 14 12/14/23 20:47 Blood Pressure 119/54 L 12/14/23 20:47 Pulse Oximetry 100 12/14/23 20:47 Oxygen Delivery Room Air 12/14/23 20:47 Temperature 97.7 F 12/14/23 20:47 Pulse Rate 81 06
[2023-12-14] MEDS: SODIUM CHLORIDE 0.9% IV 1,000 ML 999 ML IV CONT (22:26)
[2023-12-14] MEDS: POTASSIUM CHLORIDE 20 MEQ PACKET (FOR LIQUID) 40 MEQ PO (22:58)
== END 2023-12-14 23:44 | disposition home or self-care (01) ==
PROVIDERS: Student in an Organized Health Care Education/Training Program; Emergency Provider Emergency Medicine; PCP Family Medicine
DX: R00.2 Palpitations (principal); E66.9 Obesity, unspecified; Z68.25 Body mass index [BMI] 25.0-25.9, adult; E28.2 Polycystic ovarian syndrome; R82.998 Other abnormal findings in urine
CPT/HCPCS: 36415; 70450; 70496; 70498; 71045; 80053; 81001; 81025; 82948; 83735; 84484; 85025; 85610; 85730; 87086; 93005; 96360; 99284; A9270; J7030; Q9967

== ENCOUNTER 2024-01-30 19:11 | Emergency (ER) | payer OTHER, SELFPAY ==
--- NOTE | ~2024-01-30 | XR_ITS ---
EXAMINATION: XR chest 2V DATE: 01/30/2024 19:29 INDICATION: Shortness of breath and chest pressure TECHNIQUE: PA and lateral views of the chest were obtained. COMPARISON: Chest radiograph dated 12/14/2023 FINDINGS: The lungs remain clear with no focal airspace opacities, pulmonary edema, pleural effusion or pneumot horax. The cardiomediastinal silhouette is normal. Bilateral breast implants. Visualized bones and so ft tissues are unremarkable. IMPRESSION: 1. No acute cardiopulmonary disease. Reviewed, dictated and finalized at location A.
[2024-01-30 19:12] VITALS: BP 131/67; PULSE 110; RESP 15; TEMP 37.2; O2SAT 100
--- NOTE | 2024-01-30 19:12 | ECG_ITS ---
Test Date: 2024-01-30 19:15:21 Measurements Intervals [place] Rate: 125 P: 53 ND: 146 QRS: 55 QRSD: 90 T: 53 QT: 324 QTc: 469 Interpretive Statements SINUS TACHYCARDIA MINIMAL Q WAVES- INF/LAT LEADS NONSPECIFIC ST-T WAVE ABNORMALITY- HIGH LATERAL LEADS BASELINE WANDER- V4 ABNORMAL ECG Compared to ECG 12/14/2023 20:10:22 HEART RATE HAS INCREASED Electronically Signed On 01-30-2024 19:38:49 CDT by Thomas Christina D.O.
[2024-01-30 19:27] LABS: Basophils Percent Auto 0.2 % (0.2-1.2); Eosinophils Absolute Auto 0.2 K/mm3 (0-0.3); Eosinophils Percent Auto 1.8 % (0-4.4); Hemoglobin 13.1 g/dL (12.0-15.0); Immature Granulocyte Absolute 0.02 K/mm3 (0.00-0.031); Immature Granulocyte Percent A 0.2 % (0-0.5); Lymphocytes Absolute Auto 3.79 K/mm3 (0.9-3.2); Lymphocytes Percent Auto 44.6 % (18.3-44.2); Mean Corpuscular HGB Conc 33.6 g/dl (32-36); Mean Corpuscular Hemoglobin 31.6 pg (26-34); Mean Corpuscular Volume 94.2 fl (80-100); Mean Platelet Volume 10.5 fl (7.4-10.4); Monocytes Absolute Auto 0.6 K/mm3 (0.1-0.6); Monocytes Percent Auto 7.1 % (2.6-8.5); Neutrophils Absolute Auto 3.9 K/mm3 (1.3-6.7); Neutrophils Percent Auto 46.1 % (45.5-73.1); Platelet Count Result 301 k/mm3 (150-375); Red Blood Count 4.14 M/mm3 (4.2-5.4); Red Cell Distribution Width 14.9 % (11.5-14.5); White Blood Count 8.5 K/mm3 (4.5-10.0)
[2024-01-30 19:40] LABS: Prothrombin Time 13.1 Seconds (11.1-14.7)
[2024-01-30 19:41] LABS: Alanine Aminotransferase 10 U/L (6-35); Albumin Level 4.7 g/dL (3.5-5.1); Alkaline Phosphatase 76 U/L (38-126); Anion Gap 17 mmol/L (4-12); Aspartate Amino Transferase 25 U/L (14-36); Bilirubin,Total 0.5 mg/dL (0.2-1.3); Blood Urea Nitrogen 8 mg/dL (7-17); Calcium 9.5 mg/dL (8.4-10.2); Carbon Dioxide 19 mmol/L (22-30); Chloride 99 mmol/L (98-107); Estimated CRCL calculation 118 ml/min; Estimated Glomerular Filt Rate > 60; Glucose 118 mg/dL (65-110); Lipase 107 U/L (23-300); Potassium 3.4 mmol/L (3.4-5.0); Sodium 135 mmol/L (137-145)
[2024-01-30 19:42] LABS: Partial Thromboplastin Time 23.9 Seconds (22.3-36.8)
[2024-01-30 19:52] LABS: Troponin I < 0.012 ng/mL (0.000-0.034)
[2024-01-30 20:15] VITALS: BP 123/72; PULSE 95; PULSE 99; RESP 16; O2SAT 100
[2024-01-30 21:10] LABS: D Dimer 0.46 ug/mL (<0.48)
[2024-01-30] MEDS: SODIUM CHLORIDE 0.9% IV 1,000 ML 999 ML IV CONT (21:14)
[2024-01-30 21:28] LABS: BEDSIDEPREGUCG Negative
[2024-01-30 21:36] LABS: Lactic Acid Reflex 0.8 mmol/L (0.7-2.0)
[2024-01-30 21:46] LABS: Appearance Urine Clear (Clear); Bacteria Urine None Seen /hpf; Bilirubin Urine Negative (Negative); Blood Urine Negative (Negative); Color Urine Yellow (Yellow); Glucose Urine UA Negative (Negative); Ketones Urine Negative (Negative); Leukocyte Esterase Ur Trace LEU/UL (Negative); Need Manual Microscopic Reviewed; Nitrate Urine Negative (Negative); Non Pathogenic Casts 0-2; Protein Urine Negative (Negative); RBC Urine 0-2 /hpf (0-2); Specific Grav Ur 1.002 (1.001-1.035); Squamous Epithelial Cell Urine Occasional /hpf (Few); Urobilinogen Urine 0.2 mg/dL (<2.0)
[2024-01-30 21:47] LABS: Add Urine Microscopic? YES
[2024-01-30 22:08] LABS: Thyroid Stimulating Hormone Reflex 0.745 uIU/mL (0.465-4.68)
--- NOTE | 2024-01-30 22:21 | ECG_ITS ---
Test Date: 2024-01-30 22:25:03 Measurements Intervals [place] Rate: 86 P: 57 NH: 181 QRS: 63 QRSD: 88 T: 64 QT: 380 QTc: 456 Interpretive Statements SINUS RHYTHM BASELINE ARTIFACT- II, III, AVR, AVL, AVF NORMAL ECG Compared to ECG 01/30/2024 19:15:21 HEART RATE HAS DECREASED Electronically Signed On 01-31-2024 06:21:01 CDT by Thomas Christina D.O.
[2024-01-30 22:34] VITALS: BP 116/72; PULSE 85; RESP 18; O2SAT 100
[2024-01-30 22:48] LABS: Troponin I < 0.012 ng/mL (0.000-0.034)
--- NOTE | 2024-01-30 22:50 | ED.ARRPALP ---
HPI - Arrhythmia/Palpitations General Chief Complaint: Arrhythmia/Palpitations Stated Complaint: high HR Time Seen by Provider: 01/30/24 20:42 Source: patient Limitations: no limitations History of Present Illness HPI narrative: Patient is a 39-year-old female presents to the emergency department complaining of palpitations. Patient states that she gets this on and off, she was at the gym today and she left and was going to her car she started to experience some lightheadedness palpitations and shakiness which has happened to her multiple times in the past and came in for further evaluation. Patient notes that she recently wore an event monitor and has follow-up with a insurance examiner Tuesday to discuss this. Patient is to these events been going on for the past approximately 1 year and she has been told anxiety but she has no reason to be anxious and they just happened on the blue in her watch patellar that her heart rates going to the really high level such as the 140s for no reason. Patient denies chest pain. Patient does admit to getting short of breath with the episodes. Patient notes that her symptoms have resolved. Patient denies any recent injuries, recent illness, vomiting, diarrhea, urinary discomfort, syncope, use of supplements, medication use. Related Data Allergies Allergy/AdvReac Type Severity Reaction Status Date / Time No Known Allergies Allergy Verified 01/30/24 20:19 Review of Systems Review of Systems: A 10 system review of systems was completed on the patient and is negative except for what is stated in the HPI. Nursing and ancillary documentation was reviewed. PMFSH Past Medical History Medical History Obesity PCOS (polycystic ovarian syndrome) Surgical History Surgical History Hx of breast augmentation Family History Family History Mother Hypertension Diabetes mellitus Sibling Obesity Social History Social History Social History: Single Smoking status: Never smoker Second hand tobacco smoke exposure: No Alcohol intake: current Drinks per week: 1 Substance use: never Substance use type: does not use Living arrangements: alone Occupation/Education: occupation Gender identity (if verbalized by the patient): Female Sexual Orientation (if Verbalized by the Patient): Straight or Heterosexual Comments At time of signature, I have reviewed and agree with nursing past medical, surgical, social and family history unless otherwise noted. Please see the nursing chart for further information. There is no relevant family history pertinent to the presenting complaint. Exam Narrative: CONST: No acute distress. Well nourished. HENMT: Head is normocephalic and atraumatic. Moist mucous membranes. No posterior oropharynx erythema. EYES: No conjunctival icterus, injection, or pallor. PERRL. NECK: No meningeal signs. RESP: Able to speak in full sentences. Normal respiratory effort. CTAB. CARDIO: Tachycardic rate. Regular rhythm. 2+ DP and radial pulses bilaterally. GI: Nondistended. No tenderness to palpation. Soft. : No CVA tenderness to palpation. SKIN: No rashes or lesions noted on exposed skin. NEURO: Oriented x3. Moves all extremities. EXTREM/MSK/BACK: No pedal edema. PSYCH: Normal affect. Course Vital Signs Vital signs: Vital Signs Temperature 99 F 01/30/24 19:12 Pulse Rate 110 H 01/30/24 19:12 Respiratory Rate 15 01/30/24 19:12 Blood Pressure 131/67 01/30/24 19:12 Pulse Oximetry 100 01/30/24 19:12 Oxygen Delivery Room Air 01/30/24 19:12 Temperature 99 F 01/30/24 19:12 Pulse Rate 85 01/30/24 22:34 Respiratory Rate 18 01/30/24 22:34 Blood Pressure 116/72 01/30/24 22:34 Pulse Oximetry 100 07/2
== END 2024-01-30 23:12 | disposition home or self-care (01) ==
PROVIDERS: Emergency Medicine; Emergency Provider Student in an Organized Health Care Education/Training Program; PCP Family Medicine
DX: R00.2 Palpitations (principal); R00.0 Tachycardia, unspecified; E28.2 Polycystic ovarian syndrome; E66.9 Obesity, unspecified; Z68.25 Body mass index [BMI] 25.0-25.9, adult; R94.31 Abnormal electrocardiogram [ECG] [EKG]; R06.02 Shortness of breath
CPT/HCPCS: 36415; 71046; 80053; 81001; 81025; 83605; 83690; 83735; 84443; 84484; 85025; 85380; 85610; 85730; 87086; 87088; 93005; 96360; 99284; J7030

== ENCOUNTER 2024-03-09 08:33 | Outpatient (CLI) | payer OTHER, SELFPAY ==
--- NOTE | 2024-03-09 08:37 | EST_ITS ---
Patient Info Name: Franny Guallpa Age: 39 years : 1985 Gender: Female Ht: 66 in Wt: 148 lbs BSA: 1.78 m2 Exam Date: 03/09/2024 10:11 AM Exam Location: Echo Lab Patient Status: Outpatient Admit Date: 03/09/2024 Staff Ordering Physician: Thomas Christina DO Attending Provider: Thomas Christina DO Exercise Technologist: Amy Nickerson [facility] Exercise Physician: Thomas Christina DO Exam Type: CA stress test treadmill Study Info Indications R06.09 - Other forms of dyspnea R07.9 - Chest pain, unspecified An exercise stress test was performed. Summary 1. 1. Negative Abdirahman exercise stress test for ischemic ST changes by ECG criteria. 2. 2. Good functional capacity, achieving 12 METs of workload. 3. 3. Appropriate HR response to exercise. 4. 4. Appropriate HR recovery at 1 minute post exercise. 5. 5. No imaging with stress testing. 6. 6. Patient informed of the above results. Protocol: Abdirahman Stress ECG Details Stage: REST Duration (min): 2 min : 44 sec Speed (mph): 0.0 Grade (%): 0 HR (bpm): 60 SBP (mmHg): 110 DBP (mmHg): 70 METS: --- Stage: REST Duration (min): 6 min : 17 sec Speed (mph): 0.0 Grade (%): 0 HR (bpm): 86 SBP (mmHg): 110 DBP (mmHg): 70 METS: --- Stage: STAGE 1 Duration (min): 1 min : 0 sec Speed (mph): 1.7 Grade (%): 10 HR (bpm): 101 SBP (mmHg): 110 DBP (mmHg): 70 METS: --- Stage: STAGE 1 Duration (min): 2 min : 0 sec Speed (mph): 1.7 Grade (%): 10 HR (bpm): 107 SBP (mmHg): 110 DBP (mmHg): 70 METS: --- Stage: STAGE 1 Duration (min): 3 min : 0 sec Speed (mph): 1.7 Grade (%): 10 HR (bpm): 98 SBP (mmHg): 126 DBP (mmHg): 65 METS: --- Stage: STAGE 2 Duration (min): 1 min : 0 sec Speed (mph): 2.5 Grade (%): 12 HR (bpm): 107 SBP (mmHg): 126 DBP (mmHg): 65 METS: --- Stage: STAGE 2 Duration (min): 2 min : 0 sec Speed (mph): 2.5 Grade (%): 12 HR (bpm): 105 SBP (mmHg): 131 DBP (mmHg): 73 METS: --- Stage: STAGE 2 Duration (min): 3 min : 0 sec Speed (mph): 2.5 Grade (%): 12 HR (bpm): 106 SBP (mmHg): 131 DBP (mmHg): 73 METS: --- Stage: STAGE 3 Duration (min): 1 min : 0 sec Speed (mph): 3.4 Grade (%): 14 HR (bpm): 118 SBP (mmHg): 129 DBP (mmHg): 75 METS: --- Stage: STAGE 3 Duration (min): 2 min : 0 sec Speed (mph): 3.4 Grade (%): 14 HR (bpm): 120 SBP (mmHg): 129 DBP (mmHg): 75 METS: --- Stage: STAGE 3 Duration (min): 3 min : 0 sec Speed (mph): 3.4 Grade (%): 14 HR (bpm): 125 SBP (mmHg): 129 DBP (mmHg): 75 METS: --- Stage: STAGE 4 Duration (min): 1 min : 0 sec Speed (mph): 4.2 Grade (%): 16 HR (bpm): 146 SBP (mmHg): 115 DBP (mmHg): 68 METS: --- Stage: STAGE 4 Duration (min): 2 min : 0 sec Speed (mph): 4.2 Grade (%): 16 HR (bpm): 150 SBP (mmHg): 128 DBP (mmHg): 70 METS: --- S
--- NOTE | 2024-03-09 09:01 | ECHO_ITS ---
Patient Info Name: Franny Guallpa Age: 39 years : 1985 Gender: Female Ht: 66 in Wt: 148 lbs BSA: 1.78 m2 HR: 66 bpm BP: 103 / 62 mmHg Technical Quality: Good Exam Date: 03/09/2024 9:13 AM Exam Location: Echo Lab Patient Status: Outpatient Admit Date: 03/09/2024 Staff Ordering Physician: Thomas Christina DO Mica Plate Layer: Desiree Perkins RDCS Attending Provider: Thomas Christnia DO Referring Physician: Sanford CARROLL; Exam Type: CA echo doppler color flow Study Info Indications R06.09 - Other forms of dyspnea Complete two-dimensional, color flow and Doppler transthoracic echocardiogram is performed. Strain analysis performed. Summary 1. Complete two-dimensional, color flow and Doppler transthoracic echocardiogram is performed. 2. Left ventricular chamber dimension is normal. 3. Left ventricular systolic function is normal, estimated at 60-65%. 4. The left ventricular diastolic function is normal. 5. E/e' 5 is not elevated. 6. Global longitudinal strain is slightly abnormal at -16.9%. 7. There is trace aortic valve regurgitation. 8. There is trace mitral valve regurgitation. Left Ventricle E/e' 5 is not elevated. Global longitudinal strain is slightly abnormal at -16.9%. Left ventricular chamber dimension is normal. Left ventricular systolic function is normal, estimated at 60-65%. The left ventricular diastolic function is normal. Right Ventricle Right ventricular chamber dimension is normal. Right ventricular systolic function is normal. Left Atria Left atrial chamber dimension is normal. Right Atria Right atrial chamber dimension is normal. Aortic Valve The aortic valve is probable trileaflet. There is no aortic valve stenosis. There is trace aortic valve regurgitation. Pulmonic Valve There is no pulmonic regurgitation. Mitral Valve There is no mitral valve stenosis. There is trace mitral valve regurgitation. Tricuspid Valve There is no tricuspid valve regurgitation. Pericardium/Pleural There is no pericardial effusion. Inferior Vena Cava Normal inferior vena cava with >50% collapse upon inspiration consistent with normal right atrial pressure, 5 mmHg. Aorta The aortic root size at the sinus of Valsalva is normal. Left Ventricular Outflow Tract Name Value Normal LVOT 2D LVOT Diameter 2.0 cm LVOT Doppler LVOT Peak Gradient 4 mmHg LVOT Mean Gradient 2 mmHg LVOT VTI 20 cm LVOT VTI/AV VTI Ratio 0.8 LVOT Stroke Volume 60 ml LVOT CO 4.3 l/min LVOT CI 2.4 l/min/m2 Pulmonic Valve Name Value Normal RVOT Doppler RVOT Peak Gradient 2 mmHg PV Doppler PV Peak Gradient 3 mmHg Mitral Valve
== END 2024-03-09 08:34 | disposition home or self-care (01) ==
LOC: ANHCARD 08:35
PROVIDERS: PCP Family Medicine; Visit Provider Internal Medicine Cardiovascular Disease
DX: R07.9 Chest pain, unspecified (principal)
CPT/HCPCS: 93017; 93306

== ENCOUNTER 2024-11-21 19:38 | Emergency (ER) | payer OTHER, SELFPAY ==
--- NOTE | 2024-11-21 19:40 | ED.URI ---
HPI - URI/Sore Throat General Chief Complaint: Upper Respiratory Infection Stated Complaint: Sore Throat/Body aches/Chest Pain Time Seen by Provider: 11/21/24 19:40 Source: patient Mode of arrival: ambulatory Limitations: no limitations History of Present Illness HPI Narrative: Franny is a 39-year-old female patient presenting to the clinic today with complaints of runny nose, nasal congestion, cough, sore throat, headache body aches, feeling fevers, chills and chest discomfort x1 day. She reports she fell as though she was wheezing earlier in use her albuterol inhaler and this helped. Has a dry nonproductive cough Related Data Home Medications ?Medication ?Instructions ?Recorded ?Confirmed ?Last Taken ?Type amitriptyline 10 mg tablet 10 mg PO QHS 02/01/24 11/21/24 Unknown History Allergies Allergy/AdvReac Type Severity Reaction Status Date / Time No Known Allergies Allergy Verified 11/21/24 19:43 Review of Systems Review of Systems: Pertinent positives per HPI. Patient denies any rash, visual changes, dizziness, shortness of breath, chest pain, palpitations, nausea, vomiting, diarrhea, constipation, abdominal pain, or any urinary issues. [facility] Past Medical History Medical History Obesity PCOS (polycystic ovarian syndrome) Surgical History Surgical History Hx of breast augmentation Family History Family History Mother Hypertension Diabetes mellitus Sibling Obesity Social History Social History Social History: Single Smoking status: Never smoker Second hand tobacco smoke exposure: No Alcohol intake: current Drinks per week: 1 Substance use: never Substance use type: does not use Do You Feel Safe in your Home?: Yes Lack of Transportation: No Lack of Food: Never True Current Housing: I Have Housing Concerned About Future Housing: No Difficulty Paying Gas/Electric Bills: No Difficulty Paying for Meds: No Currently Unemployed: No Education: High School Diploma/GED Difficulty w/ Childcare or Family Care: No Living arrangements: alone Occupation/Education: occupation Gender identity (if verbalized by the patient): Female Sexual Orientation (if Verbalized by the Patient): Straight or Heterosexual Comments At the time of my signature, I reviewed and agree with the nursing past medical, surgical, social, and family history. There is no relevant family history pertinent to the patient complaint. Exam Narrative: General: Well-developed, well nourished, in no apparent distress Head: Normocephalic, atraumatic Eyes: Pupils equally round and reactive to light bilaterally, EOM intact, sclera and conjunctive clear, no discharge, lids normal Ears: TMs intact and congested, ear canals clear, no drainage, grossly hearing normal. Nose: Nares patent, clear nasal discharge, no inflammation, no sinus tenderness. Mouth: Oral pharynx red without lesions or masses, good dentition, MMM. Neck: Supple, trachea midline, no enlargement of anterior or posterior cervical nodes, no thyroid masses or goiter palpable. Cardio: Regular rate and rhythm, s1 and s2 normal, no murmur appreciated. Resp: Clear to auscultation bilaterally, no rhonchi, rales, wheezing or rubs Course Course Emergency Course: Portions of this record may have been created with voice recognition software. Level of Care: Express Care Visit Vital Signs Vital signs: Vital Signs Temperature 37.9 C H 11/21/24 19:50 Pulse Rate 100 11/21/24 19:50 Respiratory Rate 18 11/21/24 19:50 Blood Pressure 115/53 L 11/21/24 19:50 Pulse Oximetry 100 11/21/24 19:50 Oxygen Delivery Room Air 11/21/24 19:50 Temperature 37.9 C H 11/21/24 19:50 Pulse Rate 100 11/21/24 19:50 Respiratory Rate 18 11/21/24 19:50 Blood Pressure 115/53 L 11/21/24 19:50 Pulse Oximetry 100 11/21/24 19:50 Oxygen Delivery Room Air 11/21/24 19:50 Vital signs reviewed MDM - URI/Sore Throat MDM Narrative Medical decision making narrative: At the time of visit patient is resting comfortably on the exam table. Patient appears to be nontoxic. Labs: COVID testing was positive. Influenza and strep test were negative. We will send strep for culture. Plan: Patient has COVID-19. Work note was given. Supportive measures were discussed with the patient and they voiced understanding discharge instructions and agrees to treatment plan. Return precautions reviewed Differential Diagnosis Differential diagnosis: Likely upper respiratory infection, otitis media, sinusitis, viral infection, bronchitis, influenza, pharyngitis and other (COVID) Lab Data Labs: Lab Results 11/21/24 11/21/24 Range/Units 19:53 19:56 POC SARS CoV-2 Ag Positive (Negative) POC Grp A Strep Screen Negative (Negative) Discharge Plan Discharge Clinical Impression: COVID-19 Patient Disposition: Home Condition: Stable Instructions: Antibiotic Form, How to Recover from COVID-19 at Home (ED) Additional Instructions: COVID testing was positive in the clinic today. Influenza and strep test was negative. We will send strep for culture. May take DayQuil/NyQuil for cold/flu symptoms Increase fluids and stay well hydrated Tylenol/motrin for pain/fever Flonase and OTC antihistamines as directed Vicks vapor rub to open sinuses Sinus rinses for congestion Cepacol spray, cough drops, throat lozenges, warm tea with honey/lemon, gargle salt water to soothe throat BRAT diet for diarrhea Clear liquids x 24 hours then advance as tolerated for nausea/vomiting Go to the ED if you develop a worsening in your condition- high fever not controlled by Tylenol or Motrin, dehydration, weakness, lethargy, shortness of breath, or chest pain. Follow up with your PCP in 3-5 days if symptoms persist. Patient Language: Macanese Prescriptions: No Action prednisone 20 mg tablet 40 mg PO DAILY 5 Days Qty: 10 0RF albuterol sulfate 90 mcg/actuation HFA aerosol inhaler 2 puff INHALATION QID PRN (Reason: shortness of breath or wheezing) Qty: 8.5 0RF amitriptyline 10 mg tablet 10 mg PO QHS metoprolol succinate 25 mg tablet extended release 24 hr See Rx Instructions .ROUTE .COMPLEX Qty: 90 2RF Dose Instruction: TAKE 1 TABLET BY MOUTH DAILY Rx Instructions: TAKE 1 TABLET BY MOUTH DAILY Follow-up/Referrals: UNKNOWN,DOCTOR [Non-Staff] - Stand Alone Forms: Work/School Release IP Time of Disposition: 19:56 Quality NIHSS Nursing Documentation ED NIHSS nursing documentation: reviewed/agree
--- OUTSIDE RECORDS SUMMARY | 2024-11-21 19:40 | XMS_ITS | Referral Summary ---
Author Organization [facility] Address [address] [place] [address] Care Team Providers Care Copywriter Name Role Phone Giselle Fuentes MD Unavailable [phone] Christian Man MD Primary Care Provide r Allergies No known active allergies Medications ibuprofen (ADVIL,MOTRIN) 600 mg tablet Take 1 tablet (600 mg total) by mouth every 6 (six) hours as needed for pain (pain) 30 tablet 2 Active Additional Information Patient not taking.Reported on 02/28/2024 metFORMIN (FORTAMET) 500 mg 24 hr tablet Take 1 tablet (500 mg total) by mouth daily with breakfast Active spironolactone (ALDACTONE) 25 mg tablet Take 1 tablet (25 mg total) by mouth daily Active albuterol HFA (PROVENTIL HFA,VENTOLIN HFA,PROAIR HFA) 90 mcg/actuation inhaler 3 Active metFORMIN XR (GLUCOPHAGE XR) 500 mg 24 hr tablet 3 Active SUMAtriptan (IMITREX) 25 mg tabletIndication s:Migraine Take 1 tablet (25 mg total) by mouth once as needed for migraine May repeat dose once in 2 hours if no relief. Do not exceed 2 doses in 24 hours. 9 tablet 4 Active Additional Information Patient not taking.Reported on 02/28/2024 benzonatate (TESSALON) 100 mg capsule 4 Active fluconazole (DIFLUCAN) 150 mg tablet 4 Active methylPREDNISolo ne (MEDROL DOSEPACK) 4 mg Dosepack 4 Active nortriptyline (PAMELOR) 10 mg capsule 4 Active predniSONE (DELTASONE) 20 mg tablet 4 Active Ajovy Autoinjector 225 mg/1.5 mL auto-injector subcutaneous auto-injector Inject 1.5 mL (225 mg total) under the skin every 30 (thirty) days 4 Active metoprolol tartrate (LOPRESSOR) 25 mg immediate release tablet Take 1 tablet (25 mg total) by mouth 2 (two) times a day 180 tablet 3 4 02/28/20 25 Active Active Problems Problem Noted Date Diagnosed Date RLQ abdominal pain 10/10/2023 Urgency of urination 10/08/2022 Resolved Problems Problem Noted Date Diagnosed Date Resolved Date Dyspareunia in female 10/08/20222023 Dysuria 10/08/2022 10/05/2023 Lower urinary tract symptoms 10/08/2022 10/05/2023 Urine finding 10/08/2022 10/12/2022 Bleeding in early 05/12/2022 10/12/2022 Missed ab 09/29/2021 10/12/2022 Ultrasound scan done for deonte bility to hear heart tones 09/28/2021 10/12/2022 Social History Tobacco Use Types Packs/Day Years Used Date Smoking Tobacco: Never Smokeless Tobacco: Never AUDIT-C Answer Date Recorded Q1: How often do you have a drink containing alc ohol? 2-4 times a month 05/24/2023 Q2: How many drinks containi ng alcohol do you have on a typical day when you are drinking? 1 or 2 05/24/2023 Q3: How often do you have si x or more drinks on one occasion? Never 05/24/2023 Personal Safety Answer Date Recorded Have you ever been in or are you currently in a harmful physical or emotional relationship or is someone making you feel afraid or unsafe? 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 Gender Identity Not on file Sexual Orientation Not on file Last Filed Vital Signs Vital Sign Reading Time Taken Comments Blood Pressure 101/65 02/28/2024 1:22 PM CDT Pulse 81 02/28/2024 1:22 PM CDT Temperature 36.7 C (98 F) 02/21/2024 7:14 PM CDT Respiratory Rate 16 02/21/2024 10:45 PM CDT Oxygen Saturation 100% 02/21/2024 10:45 PM CDT Inhaled Oxygen Concentration - - Weight 68.9 kg (152 lb) 02/28/2024 1:22 PM CDT Height 167.6 cm (5' 6 ) 02/28/2024 1:22 PM CDT Body Mass Index 24.53 02/28/2024 1:22 PM CDT Plan of Treatment Not on file Procedures Procedure Name Priority Date/Time Associated Diagnosis Comments PAP AND HIGH RISK HPV, REFLEX TO GENOTYPING Routine 08/21/2021 3:49 PM GEODETIC COMPUTATOR Well woman exam from Last 3 Months or Most Recently Relevant to Health Maintenance Results * Pap and High Risk HPV, reflex to Genotyping (08/21/2021 3:49 PM GEODETIC COMPUTATOR) Thin prep (Pap test) 08/21/2021 3:49 PM GEODETIC COMPUTATOR 08/27/2021 10:00 AM GEODETIC COMPUTATOR Narrative PATHOLOGY [facility] - 08/28/2021 11:04 AM GEODETIC COMPUTATOR EPIC results best viewed via link to PDF [address] [address] Tele: Saritha Zuñiga MD - Inventory Associate CYTOLOGY REPORT Note to Patients: This report may contain a detailed description of human tissue sent by a health care provider to the laboratory for pathologic evaluation. The content of this report is essential for diagnosis and may provide important critical findings. This information may be unfamiliar to patients to review without a medical professional present. It is advised that the patient review this report in the presence of a health care provider who can answer questions and explain the details. Patient Name: FRANNY MAHER Address: [address] [place] [address], [facility] [address] [place] [address] Gender: F : 1985 (Age: 36) Service: Location: [facility] #: [id number] Patient Type: [facility] [place] Taken: 08/21/2021 Reported: 08/28/2021 Physician(s): Giselle Fuentes M.D. FINAL DIAGNOSIS: Specimen Type: - ThinPrep Pap and HPV w/ reflex Genotyping Statement of Specimen Adequacy: Source: Cervical/Endocervical - Satisfactory for interpretation - Endocervical /Transformation Zone component present - Case screened using computer assisted imaging technology General Categorization: - Negative for intraepithelial lesion or malignancy cad/08/28/2021 11:04 Komal Carolina M.S., CT (ASCP) Report Reviewed and Electronically Signed By Komal Carolina M.S., MILLY (ASCP) Clerical Data Follow A; G0145 DIAGNOSIS COMMENT: Ancillary Testing: HPV High Risk Group (16, 18, 31, 33, 35, 39, 45, 51, 52, 56, 58, 59, 66 and 68) - Not Detected Reference Range: Not Detected This test was performed using the MARY 4800 CLINICAL DIAGNOSIS AND HISTORY Last Menstrual Period: 06/28/21 Menstrual History: REPORT IMAGES AND/OR SCANNED DOCUMENTS ONLY VIEWABLE IN PDF FORMAT The Pap test is a screening test used to aid in the detection of cervical cancer and its precursors. It should not be the sole means by which malignant and premalignant lesions are diagnosed. Both false negative and false positive results may occur. It also has poor sensitivity for the detection of endometrial lesions and should not be used to evaluate suspected endometrial abnormalities. For these reasons it is most important to obtain Pap tests at regular intervals, as recommended by your physician or nurse practitioner. us Giselle Fuentes MD LAB CYTOLOGY ORDERABLES Fin al Result PATHOLOGY [facility] Laboratory Receiving [address] [facility] [place] [address] from Last 3 Months or Most Recently Relevant to Health Maintenance Insurance [facility] Address: [address] [place] [id number] Advance Directives For more information, please contact: [phone] * Full Code (Latest Code Status on File) Date Activated Date Inactivated Comments 05/24/2023 10:13 AM 05/24/2023 3:52 PM * Full Code Date Activated Date Inactivated Comments 10/01/2021 11:13 AM 10/01/2021 4:21 PM * Full Code Date Activated Date Inactivated Comments 10/01/2021 11:12 AM 10/01/2021 11:13 AM Care Teams Copywriter Relationship Specialty Start Date End Date Christian Man MD [address] [place] [address] PCP - General Family Medicine 05/17/23 Giselle Fuentes MD [address] [address] Consulting Physician Obstetrics and Gynecology 10/01/21
--- OUTSIDE RECORDS SUMMARY | 2024-11-21 19:40 | XMS_ITS | Clinical Summary ---
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 Gender Identity Not on file Sexual Orientation Not on file Obstetrics History Para Term AB IAB SAB Ectopic Multiple Livin g Live Births 2 2 1 Date Outcome GA Total Labor Labor/2nd/3rd Weight Sex Type Anes PTL Graciela A1 A5 Name Clin 09/2021 Molar D&C 10/2022 SAB Last Filed Vital Signs Vital Sign Reading [...] 02/28/2024 1:22 PM CDT Plan of Treatment Health Maintenance Due Date Last Done Comments Depression Screening 1985 Hepatitis C Screening 1985 DTaP/Tdap/Td Vaccine (1 - Tdap) 01/11/1996 Varicella Vaccines (1 of 2 - 13+ 2-dose series) 1998 Hepatitis B Screening 2003 Cervical Cancer Screening 08/21/2022 08/21/2021 Influenza Vaccine (#1) 2024 Regular Well Visit/Exam 18-64 10/04/2024, 08/21/2021 HPV Vaccines Aged Out No longer eligi ble based on patient's age to complete this topic Pneumococcal vaccine <65 Aged Out No longer eligible based on patient's age to complete this topic Procedures Procedure Name Priority Date/Time Associated Diagnosis Comments PAP AND HIGH RISK HPV, REFLEX TO GENOTYPING Routine 08/21/2021 3:49 PM GRANULATOR MACHINE OPERATOR Well woman exam from Last 3 Months or Most Recently Relevant to Health Maintenance Results * Pap and High Risk HPV, reflex to Genotyping (08/21/2021 3:49 PM GRANULATOR MACHINE OPERATOR) Thin prep (Pap test) 08/21/2021 3:49 PM GRANULATOR MACHINE OPERATOR 08/27/2021 10:00 AM GRANULATOR MACHINE OPERATOR Narrative PATHOLOGY [facility] - 08/28/2021 11:04 AM GRANULATOR MACHINE OPERATOR EPIC results best viewed via link to PDF [address] [address] Tele: Saritha Zuñiga MD - Custodial Officer CYTOLOGY REPORT Note to Patients: This report [...] the details. Patient Name: FRANNY MAHER Address: [address] [place] [address] Gender: F : 1985 (Age: 36) Service: Location: [facility] : [id number] [facility] #: [id number] Patient Type: [facility] SPECIMEN Taken: 08/21/2021 Reported: 08/28/2021 Physician(s): Giselle Fuentes M.D. FINAL DIAGNOSIS: Specimen Type: - ThinPrep Pap and HPV w/ reflex Genotyping Statement of Specimen Adequacy: Source: Cervical/Endocervical - Satisfactory for interpretation - Endocervical /Transformation Zone component present - Case screened using computer assisted imaging technology General Categorization: - Negative for intraepithelial lesion or malignancy cad/08/28/2021 11:04 Komal Carolina M.S., MILLY (ASCP) Report Reviewed and Electronically Signed By [...] LAB CYTOLOGY ORDERABLES Fin al Result PATHOLOGY [facility] Laboratory Receiving [address] [place] [address] from Last 3 Months or Most Recently Relevant to Health Maintenance Insurance Advance Directives For more information, please contact: [phone] * Full Code (Latest Code Status on File) Date Activated Date Inactivated Comments 05/24/2023 10:13 AM 05/24/2023 3:52 PM * Full Code Date Activated Date Inactivated Comments 10/01/2021 11:13 AM 10/01/2021 4:21 PM * Full Code Date Activated Date Inactivated Comments 10/01/2021 11:12 AM 10/01/2021 11:13 AM Care Teams Director Public Relationship Specialty Start Date End Date Christian Man MD [address] [place] [address] PCP - General Family Medicine 05/17/23 Giselle Fuentes MD [address] [facility] [address] [place] [address] Consulting Physician Obstetrics and Gynecology 10/01/21
[2024-11-21 19:50] VITALS: BP 115/53; PULSE 100; RESP 18; TEMP 37.9; O2SAT 100
[2024-11-21 19:55] LABS: EDCOVIDSCREEN Positive (Negative)
[2024-11-21 19:58] LABS: EDSTREPNEGPOS1 Negative (Negative)
[2024-11-21 20:02] LABS: EDINFLUASCREEN Negative (Negative); EDINFLUBSCREEN Negative (Negative)
== END 2024-11-21 20:06 | disposition home or self-care (01) ==
PROVIDERS: Emergency Provider Nurse Practitioner Family
DX: U07.1 COVID-19 (principal); E66.9 Obesity, unspecified; E28.2 Polycystic ovarian syndrome; Z68.25 Body mass index [BMI] 25.0-25.9, adult
CPT/HCPCS: 87081; 87426; 87804; 87880; 99213; G0463

== ENCOUNTER 2025-04-09 17:18 | Emergency (ER) | payer OTHER, SELFPAY ==
[2025-04-09 17:32] VITALS: BP 105/57; PULSE 70; RESP 16; TEMP 36.4; O2SAT 98
[2025-04-09 17:40] LABS: EDSTREPNEGPOS1 Negative (Negative)
--- NOTE | 2025-04-09 17:52 | ED.URI ---
HPI - URI/Sore Throat General Chief Complaint: Upper Respiratory Infection Stated Complaint: SORE THROAT Time Seen by Provider: 04/09/25 17:35 Source: patient and RN notes reviewed Mode of arrival: ambulatory Limitations: no limitations History of Present Illness HPI Narrative: 40-year-old female presents Express Care complaining of sore throat and mild congestion since yesterday. Patient denies any cough, runny nose, fevers, body aches, chills, nausea vomiting, diarrhea, chest pain, difficulty breathing. She reports a burning sensation the back of her throat, it is worse with swallowing. Patient denies any dysphagia or difficulty clearing secretions. Patient Says she recently got back from [place]. Patient would like a refill of her albuterol inhaler as she is out, she has a history of asthma. Related Data Home Medications ?Medication ?Instructions ?Recorded ?Confirmed ?Last Taken ?Type amitriptyline 10 mg tablet 10 mg PO QHS 02/01/24 11/27/24 Unknown History clonazepam 0.5 mg tablet (Klonopin) 0.5 mg PO DAILY 11/27/24 11/27/24 Unknown History Allergies Allergy/AdvReac Type Severity Reaction Status Date / Time No Known Allergies Allergy Verified 11/21/24 19:43 Review of Systems Review of Systems: CONSTITUTIONAL: Denies fever, body aches, chills, or sweats. EYES: Denies visual changes, redness, or discharge. ENT: Denies rhinorrhea, or otalgia. Positive for congestion and sore throat. CARDIOVASCULAR: Denies chest pain, palpitations, or edema. RESPIRATORY: Denies cough or dyspnea. GASTROINTESTINAL: Denies abdominal pain, nausea, vomiting, or diarrhea. GENITOURINARY: Denies dysuria or hematuria. SKIN: Denies rash or itching. MUSCULOSKELETAL: Denies back pain, joint pain, or myalgia. NEUROLOGIC: Denies headache, numbness, or weakness. PSYCHIATRIC: Denies anxiety or depression. All other systems reviewed are negative, except as documented in HPI. REPLACED BY [facility] Past Medical History Medical History Obesity PCOS (polycystic ovarian syndrome) Surgical History Surgical History Hx of breast augmentation Family History Family History Mother Hypertension Diabetes mellitus Sibling Obesity Social History Social History Social History: Single Smoking status: Never smoker Second hand tobacco smoke exposure: No Alcohol intake: current Drinks per week: 1 Substance use: never Substance use type: does not use Do You Feel Safe in your Home?: Yes Lack of Transportation: No Lack of Food: Never True Current Housing: I Have Housing Concerned About Future Housing: No Difficulty Paying Gas/Electric Bills: No Difficulty Paying for Meds: No Currently Unemployed: No Education: High School Diploma/GED Difficulty w/ Childcare or Family Care: No Living arrangements: alone Occupation/Education: occupation Gender identity (if verbalized by the patient): Female Sexual Orientation (if Verbalized by the Patient): Straight or Heterosexual Comments At the time of my signature, I reviewed and agree with the nursing past medical, surgical, social, and family history. There is no relevant family history pertinent to the patient complaint. Exam Narrative: GENERAL: This is a well-nourished, well-developed adult, in no apparent distress. They are non ill-appearing, nontoxic appearing. HEAD: normocephalic, atraumatic. EYES: Sclera clear/white. Conjunctiva normal. Vision is grossly intact. Extraocular movements intact EARS: External ears normal, auditory canals clear and without drainage, TMs normal without perforation. Hearing grossly intact. NOSE: External nose normal with no obvious nasal discharge, nasal turbinates without redness, no rhinorrhea. THROAT: Mucous membranes moist, posterior pharynx erythematous. Uvula midline. NECK: Neck supple, non-tender without lymphadenopathy, masses or thyromegaly. CARDIOVASCULAR: Regular rate and rhythm without murmurs, gallops, or rubs. RESPIRATORY: Clear to auscultation. Breath sounds equal bilaterally. No wheezes, rales, or rhonchi. SKIN: warm, Dry, intact with no suspicious lesions or rash, good texture and turgor. NEURO: awake, alert, and oriented to person, place and time. There were no obvious focal neurologic abnormalities. EXTREMITIES: No joint tenderness, effusion, or edema noted. Course Course Emergency Course: Portions of this record may have been created with voice recognition software Level of Care: [facility] Visit Vital Signs Vital signs: Vital Signs Temperature 97.5 F L 04/09/25 17:32 Pulse Rate 70 04/09/25 17:32 Respiratory Rate 16 04/09/25 17:32 Blood Pressure 105/57 L 04/09/25 17:32 Pulse Oximetry 98 04/09/25 17:32 Temperature 97.5 F L 04/09/25 17:32 Pulse Rate 70 04/09/25 17:32 Respiratory Rate 16 04/09/25 17:32 Blood Pressure 105/57 L 04/09/25 17:32 Pulse Oximetry 98 04/09/25 17:32 Reviewed MDM - URI/Sore Throat MDM Narrative Medical decision making narrative: Rapid strep negative. Throat culture is pending. Symptoms likely viral pharyngitis. Refilled patient's albuterol inhaler. Will send a prescription of dexamethasone up with pain. Discussed physical exam findings. Advised supportive measures and signs/symptoms to go to the ER. Pt is appropriate for outpt treatment and f/u. Differential Diagnosis Differential diagnosis: Likely upper respiratory infection, sinusitis, viral infection and pharyngitis Lab Data Attestation: I reviewed the patient's lab results. Labs: Lab Results 04/09/25 Range/Units 17:38 POC Grp A Strep Screen Negative (Negative) Critical Care Time Critical Care Time Critical Care Time: No Discharge Plan Discharge Clinical Impression: Acute viral pharyngitis Patient Disposition: Home Condition: Stable Instructions: Pharyngitis (ED) Additional Instructions: Your rapid strep swab was negative today at [facility]. You will be notified in a few days if the culture comes back positive for strep, and appropriate antibiotics will be called in for you at that time. Your symptoms are likely due to a viral illness, which is not treated with antibiotics. Viral symptoms can be present for up to 7-10 days. Take dexamethasone as directed. It is a 1 time dose however it is long-acting. Take Tylenol or ibuprofen as needed for fever or pain. Follow instructions on the bottle. Rest and stay hydrated. Follow up with your PCP in 5-7 days if symptoms are not improving. Go to the ER immediately if you develop difficulty breathing or swallowing Patient Language: Yoruba Prescriptions: New dexamethasone 2 mg tablet 10 mg PO DAILY 1 Days Qty: 5 0RF albuterol sulfate [Ventolin HFA] 90 mcg/actuation HFA aerosol inhaler 2 puff inhalation QID PRN (Reason: shortness of breath or wheezing) Qty: 8.5 0RF No Action prednisone 20 mg tablet 40 mg PO DAILY 5 Days Qty: 10 0RF albuterol sulfate 90 mcg/actuation HFA aerosol inhaler 2 puff INHALATION QID PRN (Reason: shortness of breath or wheezing) Qty: 8.5 0RF clonazepam [Klonopin] 0.5 mg tablet 0.5 mg PO DAILY amitriptyline 10 mg tablet 10 mg PO QHS metoprolol succinate 25 mg tablet extended release 24 hr See Rx Instructions .ROUTE .COMPLEX Qty: 90 2RF Dose Instruction: TAKE 1 TABLET BY MOUTH DAILY Rx Instructions: TAKE 1 TABLET BY MOUTH DAILY Follow-up/Referrals: Christian Man MD [Primary Care Provider, Internal Medicine] Time of Disposition: 17:50
== END 2025-04-09 17:54 | disposition home or self-care (01) ==
PROVIDERS: PCP Family Medicine
DX: J02.8 Acute pharyngitis due to other specified organisms (principal); B97.89 Other viral agents as the cause of diseases classified elsewhere
CPT/HCPCS: 87081; 87880; 99213; G0463

== ENCOUNTER 2025-05-09 09:52 | Emergency (ER) | payer OTHER, SELFPAY ==
--- NOTE | 2025-05-09 10:07 | ED_ITS ---
HPI - Abdominal Pain General Chief Complaint: Nausea/Vomiting/Diarrhea Stated Complaint: Stomach Pain / Vomiting Time Seen by Provider: 05/09/25 10:07 Source: patient, RN notes reviewed and old records reviewed Mode of arrival: ambulatory Limitations: no limitations History of Present Illness HPI narrative: 40-year-old female presents to the [facility] reports that she started with nausea about 630 this morning. Went to a work meeting where she drink some tea and took a bite of a ache starting having epigastric pain and vomiting. Had 2 episodes of diarrhea. States that she would just like medication for the nausea so she can attend a workup in this afternoon. Patient reports that she had her gallbladder worked up and reports ?23% a my gallbladder works. ? Does not take medication on a daily basis. Has not followed up. Denies any choice pain shortness of breath. Denies any urinary symptoms No treatment prior to arrival Onset (ago): hour(s) Related Data Home Medications ?Medication ?Instructions ?Recorded ?Confirmed ?Last Taken ?Type amitriptyline 10 mg tablet 10 mg PO QHS 02/01/2411/27 Unknown History clonazepam 0.5 mg tablet (Klonopin) 0.5 mg PO DAILY 11/27/24 Unknown History Allergies Allergy/AdvReac Type Severity Reaction Status Date / Time No Known Allergies Allergy Verified 05/09/25 10:10 Review of Systems Review of Systems: All systems reviewed & are unremarkable except as noted in HPI and below Constitutional: Constitutional: Reports no additional constitutional complaints ENT: Reports system reviewed and no additional complaints, except as documented Cardiovascular: Cardiovascular: Reports no additional cardiovascular complaints, Denies chest pain and Denies dyspnea Respiratory: Respiratory: Reports no additional respiratory complaints, Denies chest congestion, Denies cough and Denies dyspnea Gastrointestinal: Gastrointestinal: Reports as per HPI, Reports abdominal pain, Reports diarrhea, Reports nausea and Reports vomiting Genitourinary: Genitourinary: Reports no additional female genitourinary complaints Musculoskeletal: Musculoskeletal: Reports no additional musculoskeletal complaints Integumentary/Breasts: Skin/Breast: Reports system reviewed and no additional complaints, except as docu PMFSH Past Medical History Medical History Obesity PCOS (polycystic ovarian syndrome) Surgical History Surgical History Hx of breast augmentation Family History Family History Mother Hypertension Diabetes mellitus Sibling Obesity Social History Social History Social History: Single Second hand tobacco smoke exposure: No Alcohol intake: current Drinks per week: 1 Substance use: never Substance use type: does not use Do You Feel Safe in your Home?: Yes Lack of Transportation: No Lack of Food: Never True Current Housing: I Have Housing Concerned About Future Housing: No Difficulty Paying Gas/Electric Bills: No Difficulty Paying for Meds: No Currently Unemployed: No Education: High School Diploma/GED Difficulty w/ Childcare or Family Care: No Living arrangements: alone Occupation/Education: occupation Gender identity (if verbalized by the patient): Female Sexual Orientation (if Verbalized by the Patient): Straight or Heterosexual Comments At the time of my signature, I reviewed and agree with the nursing past medical, surgical, social, and family history. There is no relevant family history pertinent to the patient complaint. Exam Const: General: cooperative, no acute distress, well developed, alert, uncomfortable and well nourished Nutritional Appearance: well nourished Orientation/consciousness: patient oriented x3 Limitations: no limitations HENMT: Head: normal to inspection Mouth: Yes Normal oral and palatal mucosa present, Yes lip normal, Yes tongue normal and Yes moist mucous membranes Eyes: General: appearance normal, both eyes and all related structures Alignment and Position: alignment normal Neck: Neck: normal visual inspection, full ROM, no lymphadenopathy and no meningeal signs Chest: Chest palpation & inspection: normal inspection of the chest Resp: Effort & Inspection: normal respiratory effort and able to speak in complete sentences Auscultation: clear to auscultation bilaterally, no crackles, no rales, no rhonchi and no wheezes Cardio: Rate: regular rate GI: GI Palp: Yes abdominal tenderness (Epigastric, left upper), Yes Soft to palpation, Yes Tenderness to palpation present (GI) and No Guarding due to palpation present (GI) Auscultation: normal bowel sounds Skin: General skin exam: normal color and no rashes or lesions noted Neuro: General: patient oriented x3, gait normal, moves all extremities and no meningeal signs Cognition (Neuro): normal cognition Speech: normal speech Gait exam (Neuro): Normal gait present Extrem: General: normal to inspection, full ROM, capillary refill normal and normal gait Psych: Appearance: grossly normal and well kempt Mental Status: mental status grossly normal Speech and movement: Normal speech and movement present and Clear speech present Affect: normal affect Attitude: cooperative Course Course Level of Care: Express Care Visit Vital Signs Vital signs: Vital Signs Temperature 97.8 F 05/09/25 10:09 Pulse Rate 76 05/09/25 10:09 Respiratory Rate 18 05/09/25 10:09 Blood Pressure 100/59 L 05/09/25 10:09 Pulse Oximetry 100 05/09/25 10:09 Oxygen Delivery Room Air 05/09/25 10:09 Temperature 97.8 F 05/09/25 10:09 Pulse Rate 76 05/09/25 10:09 Respiratory Rate 18 05/09/25 10:09 Blood Pressure 100/59 L 05/09/25 10:09 Pulse Oximetry 100 05/09/25 10:09 Oxygen Delivery Room Air 05/09/25 10:09 Reviewed MDM - Abdominal Pain MDM Narrative Medical decision making narrative: Patient sitting in exam room. Patient is nontoxic but appears uncomfortable. Reports nausea vomiting, epigastric right upper quadrant discomfort. Patient reports history of gallbladder issues 3 months ago, states it was worked up by her primary. Denies any follow-up. Denies taking medication daily. Patient is requesting a just something for her nausea to get through the day. If symptoms got worse she will go to the emergency room Discharge instructions reviewed with patient, as well as provided in writing per nursing staff. The instructions also include specific and strict return/GO TO THE ER as well as f/u information. All questions have been answered, and the patient deny any further questions with discharge and discharge plan. Some parts of this dictation were generated by voice recognition software and may contain typographical and/or grammatical inaccuracies. Differential Diagnosis Differential diagnosis: Likely abdominal pain and other (Cholecystitis, cholelithiasis, pancreatitis, gastroenteritis, anxiety) Critical Care Time Critical Care Time Critical Care Time: No Discharge Plan Discharge Clinical Impression: Nausea vomiting and diarrhea Abdominal pain Qualifiers: Abdominal location: epigastric Qualified Code(s): R10.13 - Epigastric pain Patient Disposition: Home Condition: Stable Instructions: Antibiotic Form, Abdominal Pain (ED) Additional Instructions: If you are unable to keep fluids down, continue with abdominal pain please proceed to the nearest emergency room for further evaluation, testing and treatment Patient Language: Greek Prescriptions: New ondansetron 4 mg tablet,disintegrating 4 mg PO Q8H PRN (Reason: nausea and vomiting) Qty: 7 0RF No Action prednisone 20 mg tablet 40 mg PO DAILY 5 Days Qty: 10 0RF albuterol sulfate 90 mcg/actuation HFA aerosol inhaler 2 puff INHALATION QID PRN (Reason: shortness of breath or wheezing) Qty: 8.5 0RF dexamethasone 2 mg tablet 10 mg PO DAILY 1 Days Qty: 5 0RF albuterol sulfate [Ventolin HFA] 90 mcg/actuation HFA aerosol inhaler 2 puff inhalation QID PRN (Reason: shortness of breath or wheezing) Qty: 8.5 0RF clonazepam [Klonopin] 0.5 mg tablet 0.5 mg PO DAILY amitriptyline 10 mg tablet 10 mg PO QHS metoprolol succinate 25 mg tablet extended release 24 hr See Rx Instructions .ROUTE .COMPLEX Qty: 90 2RF Dose Instruction: TAKE 1 TABLET BY MOUTH DAILY Rx Instructions: TAKE 1 TABLET BY MOUTH DAILY Follow-up/Referrals: Christian Man MD [Primary Care Provider, Internal Medicine] - 1 Week Stand Alone Forms: Work/School Release IP Time of Disposition: 10:24
[2025-05-09 10:09] VITALS: BP 100/59; PULSE 76; RESP 18; TEMP 36.6; O2SAT 100
--- OUTSIDE RECORDS SUMMARY | 2025-05-09 18:18 | XMS_ITS | Clinical Summary ---
Author Organization [facility] Address [address] [place] [address] Care Team Providers Care Observer Helper Name Role Phone Giselle Fuentes MD Unavailable Christian Man MD Primary Care Provide r [...] times a day 180 tablet 3 4 Active clonazePAM (KlonoPIN) 0.5 mg tablet Take 1 tablet (0.5 mg total) by mouth daily Active Active Problems Problem Noted Date Diagnosed Date Gastroesophageal reflux disease 12/25/2024 Functional dyspepsia 12/25/2024 Hematochezia 12/13/2024 Diarrhea 12/13/2024 Change in bowel habits 12/13/2024 RLQ abdominal pain 10/10/2023 Urgency of urination 10/08/2022 Resolved Problems Problem Noted Date Diagnosed Date Resolved Date Dyspareunia in female 10/08/20222023 Dysuria 10/08/2022 10/05/2023 Lower urinary tract symptoms 10/08/2022 10/05/2023 Urine finding 10/08/2022 10/12/2022 Bleeding in early 05/12/2022 10/12/2022 Missed ab 09/29/2021 10/12/2022 Ultrasound scan done for deonte bility to hear heart tones 09/28/2021 10/12/2022 Surgical History Surgery Date Site/Laterality Comments DILATION AND CURETTAGE OF UTERUS 07/04/2021 - 07/03/2022 Medical History Medical History Date Comments Asthma Blood in stool PCOS (polycystic ovarian syndrome) Tachycardia determined by ex amination of pulse 2023 Random tachycardia up to 160 bbm at rest Social History Tobacco Use Types Packs/Day Years Used Date Smoking Tobacco: Never Smokeless Tobacco: Never AUDIT-C Answer Date Recorded Q1: How often do you have a drink containing alc ohol? 2-4 times a month 12/18/2024 Q2: How many drinks containi ng alcohol do you have on a typical day when you are drinking? 3 or 4 12/18/2024 Q3: How often do you have si x or more drinks on one occasion? Never 12/18/2024 Personal Safety Answer Date Recorded Have you ever been in or are you currently in a harmful physical or emotional relationship or is someone making you feel afraid or unsafe? Denies 12/18/2024 Comments No Sex and Gender Information Value Date Recorded Sex Assigned at Not on file Legal Sex Female 11:56 AM REVENUE COLLECTOR Gender Identity Not on file Sexual Orientation Not on file Obstetrics History Para Term AB IAB SAB Ectopic Multiple Livin g Live Births 2 2 1 Date Outcome GA Total Labor Labor/2nd/3rd Weight Sex Type Anes PTL Graciela A1 A5 Name Clin 09/2021 Molar D&C 10/2022 SAB Last Filed Vital Signs Vital Sign Reading Time Taken Comments Blood Pressure 102/66 12/18/2024 8:45 AM CDT Pulse 58 12/18/2024 8:45 AM CDT Temperature 36.3 C (97.3 F) 12/18/2024 6:50 AM CDT Respiratory Rate 24 12/18/2024 8:45 AM CDT Oxygen Saturation 100% 12/18/2024 8:45 AM CDT Inhaled Oxygen Concentration - - Weight 68.9 kg (152 lb) 12/18/2024 6:50 AM CDT Height 167.6 cm (5' 6) 12/18/2024 6:50 AM CDT Body Mass Index 24.53 12/18/2024 6:50 AM CDT Plan of Treatment Scheduled Procedures Name Priority Associated Diagnoses Date/Ti me ESOPHAGOGASTRODUODENOSCOPY Gastroesophageal reflux disease, unspecified whether esophagitis present Functional dyspepsia Health Maintenance Due Date Last Done Comments Breast Cancer Screening-Mammogram 1985 Depression Screening 1985 Hepatitis C Screening 1985 DTaP/Tdap/Td Vaccine (1 - Tdap) 01/11/1996 Varicella Vaccines (1 of 2 - 13+ 2-dose series) 1998 Hepatitis B Screening 2003 HPV Vaccines (1 - 3-dose SCD M series) 01/11/2012 Cervical Cancer Screening 08/21/2022 08/21/2021 Regular Well Visit/Exam 18-64 10/04/2024, 08/21/2021 Influenza Vaccine (#1) 2025 Pneumococcal vaccine <65 Aged Out No longer eligible based on patient's age to complete this topic Procedures Procedure Name Priority Date/Time Associated Diagnosis Comments PAP AND HIGH RISK HPV, REFLEX TO GENOTYPING Routine 08/21/2021 3:49 PM REVENUE COLLECTOR Well woman exam from Last 3 Months or Most Recently Relevant to Health Maintenance Results * Pap and High Risk HPV, reflex to Genotyping (08/21/2021 3:49 PM REVENUE COLLECTOR) Thin prep (Pap test) 08/21/2021 3:49 PM REVENUE COLLECTOR 08/27/2021 10:00 AM REVENUE COLLECTOR Narrative PATHOLOGY [facility] - 08/28/2021 11:04 AM REVENUE COLLECTOR EPIC results best viewed via link to PDF [address] [address] Tele: Saritha Zuñiga MD - Transfer Worker CYTOLOGY REPORT Note to Patients: This report [...] the details. Patient Name: FRANNY MAHER Address: [address] [place] [address] Gender: F : 1985 (Age: 36) Service: Location: N : [id number] [facility] #: [id number] Patient Type: [facility] SPECIMEN Taken: 08/21/2021 Reported: 08/28/2021 Physician(s): Giselle Fuentes M.D. FINAL DIAGNOSIS: Specimen Type: - ThinPrep Pap and HPV w/ reflex Genotyping Statement of Specimen Adequacy: Source: Cervical/Endocervical - Satisfactory for interpretation - Endocervical /Transformation Zone component present - Case screened using computer assisted imaging technology General Categorization: - Negative for intraepithelial lesion or malignancy 08/28/2021 11:04 Komal Carolina M.S., MILLY (ASCP) Report [...] us Giselle Fuentes MD LAB CYTOLOGY ORDERABLES [facility] al Result PATHOLOGY [facility] Laboratory Receiving [address] [place] [address] from Last 3 Months or Most Recently Relevant to Health Maintenance [place] [address] [facility] Advance Directives For more information, please contact: [phone] * Full Code (Latest Code Status on File) Date Activated Date Inactivated Comments 12/18/2024 6:49 AM 12/18/2024 1:20 PM * Full Code Date Activated Date Inactivated Comments 05/24/2023 10:13 AM 05/24/2023 3:52 PM * Full Code Date Activated Date Inactivated Comments 10/01/2021 11:13 AM 10/01/2021 4:21 PM * Full Code Date Activated Date Inactivated Comments 10/01/2021 11:12 AM 10/01/2021 11:13 AM Care Teams Observer Helper Relationship Specialty Start Date End Date Christian Man MD [address] [place] [address] PCP - General Family Medicine 05/17/23 Giselel Fuentes MD [id number] [address] Consulting Physician Obstetrics and Gynecology 10/01/21
== END 2025-05-09 10:26 | disposition home or self-care (01) ==
PROVIDERS: Emergency Provider Nurse Practitioner; PCP Family Medicine
DX: R11.2 Nausea with vomiting, unspecified (principal); R19.7 Diarrhea, unspecified; R10.13 Epigastric pain; E28.2 Polycystic ovarian syndrome; E66.9 Obesity, unspecified; Z68.24 Body mass index [BMI] 24.0-24.9, adult
CPT/HCPCS: 99213; G0463